=== PATIENT | female | born 1960 | race African-American/Black ===

== ENCOUNTER 2019-11-22 14:52 | Inpatient (IN) | payer MEDICAID, MEDICARE, OTHER ==
[~2019-11-22] VITALS: Ht 170.2 cm; Wt 126.1 kg
[2019-11-22 15:44] LABS: BASO # 0.1 x10^3/uL (0.0-0.2); BASO % 1 % (0-3); EOS % 0 % (0-3); HEMATOCRIT 43.7 % (36.0-47.0); HEMOGLOBIN 14.8 g/dL (12.0-15.5); LYMPH # 2.2 x10^3/uL (1.0-4.8); LYMPH % 32 % (24-48); MEAN CORPUSCULAR HEMOGLOBIN 28 pg (25-35); MEAN CORPUSCULAR HGB CONC 34 g/dL (31-37); MEAN CORPUSCULAR VOLUME 83 fL (79-100); MONO # 0.6 x10^3/uL (0.0-1.1); MONO % 9 % (0-9); NEUT % 58 % (31-73); PLATELET COUNT 386 x10^3/uL (140-400); RED BLOOD COUNT 5.28 x10^6/uL (3.50-5.40); RED CELL DISTRIBUTION WIDTH 14.1 % (11.5-14.5); WHITE BLOOD COUNT 6.9 x10^3/uL (4.0-11.0)
[2019-11-22 15:51] LABS: CALCIUM 9.6 mg/dL (8.5-10.1); CREATININE 1.1 mg/dL (0.6-1.0); GFR 61.9; POTASSIUM 3.8 mmol/L (3.5-5.1)
[2019-11-22 15:57] LABS: ALBUMIN 3.9 g/dL (3.4-5.0); ALBUMIN/GLOBULIN RATIO 0.8 (1.0-1.7); MAGNESIUM 2.4 mg/dL (1.8-2.4); TOTAL BILIRUBIN 0.3 mg/dL (0.2-1.0); TOTAL PROTEIN 8.6 g/dL (6.4-8.2)
[2019-11-22 16:02] LABS: ACETAMIN < 2.0 mcg/mL (10-30); ETHANOL < 10 mg/dL (0-10); SALIC < 2.8 mg/dL (2.8-20.0)
[2019-11-22] MEDS ORDERED: MV-M1TAB29 PO (16:17)
[2019-11-22] MEDS ORDERED: POLY2500 PO (16:17)
[2019-11-22] MEDS ORDERED: LOSA1TAB19 PO (16:17)
[2019-11-22] MEDS ORDERED: DOCU100C28 PO (16:17)
[2019-11-22] MEDS ORDERED: ACET500T68 PO (16:17)
[2019-11-22] MEDS ORDERED: TRAV5DRO OU (16:17)
[2019-11-22] MEDS ORDERED: ASPI-630 PO (16:17)
[2019-11-22] MEDS ORDERED: LORA-254 PO (16:17)
[2019-11-22] MEDS ORDERED: AMLO5TAB10 PO (16:17)
[2019-11-22] MEDS ORDERED: ATOR10TA60 PO (16:17)
[2019-11-22] MEDS ORDERED: LURA40TA PO (16:17)
[2019-11-22] MEDS ORDERED: PANT40TA5 PO (16:17)
[2019-11-22 16:20] LABS: AMPHETAMINE/METHAMPHETAMINE NEG (NEG); BARBITURATES NEG (NEG); BENZODIAZEPINES NEG (NEG); CANNABINOIDS NEG (NEG); COCAINE NEG (NEG); METHADONE NEG (NEG); OPIATES NEG (NEG); PHENCYCLIDINE NEG (NEG)
[2019-11-22 16:22] LABS: COLOR,URINE YELLOW
[2019-11-22 16:23] LABS: GLUCOSE,URINE NEG (NEG); NITRITE,URINE NEG (NEG); UROBILINOGEN,URINE 0.2 mg/dL (0.2 mg/dL)
[2019-11-22 16:26] LABS: BACTERIA,URINE FEW /HPF (0-FEW); BILIRUBIN,URINE NEG (NEG); WBC,URINE 0 /HPF (0-4)
[2019-11-22 16:27] LABS: HYALINE CASTS, URINE MOD /HPF; SQUAMOUS EPITHELIAL CELL,UR MOD /LPF
[2019-11-22 16:28] LABS: CLARITY,URINE TURBID
--- NOTE | 2019-11-22 16:39 | PHYS DOC ---
Past History Past Medical History: Anxiety, GERD, Glaucoma, Hypertension, Schizophrenia Alcohol Use: None General Adult EDM: Chief Complaint: PSYCH EVALUATION HPI: HPI: Patient is a 58-year-old female who was sent here for medical clearance. She h as history of anxiety depression, patient has been out of her psychiatric medicationS off and on, she becAme depressed, hallucinating sometimes, she was very suicidal, thinking about walking in front of A truck so she can . Patient already has an inpatient psychiatric placement at this [facility] but need medical clearance first. Review of Systems: Review of Systems: Constitutional: Denies fever or chills Eyes: Denies change in visual acuity HENT: Denies nasal congestion or sore throat Respiratory: Denies cough or shortness of breath Cardiovascular: Denies chest pain or edema GI: Denies abdominal pain, nausea, vomiting, bloody stools or diarrhea : Denies dysuria Musculoskeletal: Denies back pain or joint pain Integument: Denies rash Neurologic: Denies headache, focal weakness or sensory changes Endocrine: Denies polyuria or polydipsia Lymphatic: Denies swollen glands Psychiatric: POSITIVE FOR depression , anxiety AND SI Heart Score: Risk Factors: Risk Factors: DM, Current or recent (<one month) smoker, HTN, HLP, family history of CAD, obesity. Risk Scores: Score 0 - 3: 2.5% MACE over next 6 weeks - Discharge Home Score 4 - 6: 20.3% MACE over next 6 weeks - Admit for Clinical Observation Score 7 - 10: 72.7% MACE over next 6 weeks - Early Invasive Strategies Allergies: Allergies: Allergies Coded Allergies Type Severity Reaction Last Updated Verified No Known Drug Allergies 11/22/19 No Physical Exam: PE: Constitutional: Well developed, well nourished, no acute distress, non-toxic appearance. [] HENT: Normocephalic, atraumatic, bilateral external ears normal, oropharynx moist, no oral exudates, nose normal. [] Eyes: PERRLA, EOMI, conjunctiva normal, no discharge. [] Neck: Normal range of motion, no tenderness, supple, no stridor. [] Cardiovascular:Heart rate regular rhythm, no murmur [] Lungs & Thorax: Bilateral breath sounds clear to auscultation [] Abdomen: Bowel sounds normal, soft, no tenderness, no masses, no pulsatile masses. [] Skin: Warm, dry, no erythema, no rash. [] Back: No tenderness, no CVA tenderness. [] Extremities: No tenderness, no cyanosis, no clubbing, ROM intact, no edema. [] Neurologic: Alert and oriented X 3, normal motor function, normal sensory function, no focal deficits noted. [] Psychologic: ENDORSED SUICIDAL IDEATION, DEPRESSED Current Patient Data: Labs: Laboratory Tests Test 11/22/19 15:27 11/22/19 15:51 White Blood Count 6.9 x10^3/uL (4.0-11.0) Red Blood Count 5.28 x10^6/uL (3.50-5.40) Hemoglobin 14.8 g/dL (12.0-15.5) Hematocrit 43.7 % (36.0-47.0) Mean Corpuscular Volume 83 fL (79-100) Mean Corpuscular Hemoglobin 28 pg (25-35) Mean Corpuscular Hemoglobin Concent 34 g/dL (31-37) Red Cell Distribution Width 14.1 % (11.5-14.5) Platelet Count 386 x10^3/uL (140-400) Neutrophils (%) (Auto) 58 % (31-73) Lymphocytes (%) (Auto) 32 % (24-48) Monocytes (%) (Auto) 9 % (0-9) Eosinophils (%) (Auto) 0 % (0-3) Basophils (%) (Auto) 1 % (0-3) Neutrophils # (Auto) 4.0 x10^3uL (1.8-7.7) Lymphocytes # (Auto) 2.2 x10^3/uL (1.0-4.8) Monocytes # (Auto) 0.6 x10^3/uL (0.0-1.1) Eosinophils # (Auto) 0.0 x10^3/uL (0.0-0.7) Basophils # (Auto) 0.1 x10^3/uL (0.0-0.2) Sodium Level 139 mmol/L (136-145) Potassium Level 3.8 mmol/L (3.5-5.1) Chloride Level 102 mmol/L (98-107) Carbon Dioxide Level 26 mmol/L (21-32) Anion Gap 11 (6-14) Blood Urea Nitrogen 12 mg/dL (7-20) Creatinine 1.1 mg/dL (0.6-1.0) H Estimated GFR (Cockcroft-Gault) 61.9 BUN/Creatinine Ratio 11 (6-20) Glucose Level 125 mg/dL (70-99) H Calcium Level 9.6 mg/dL (8.5-10.1) Magnesium Level 2.4 mg/dL (1.8-2.4) Total Bilirubin 0.3 mg/dL (0.2-1.0) Aspartate Amino Transferase (AST) 19 U/L (15-37) Alanine Aminotransferase (ALT) 27 U/L (14-59) Alkaline Phosphatase 114 U/L (46-116) Total Protein 8.6 g/dL (6.4-8.2) H Albumin 3.9 g/dL (3.4-5.0) Albumin/Globulin Ratio 0.8 (1.0-1.7) L Salicylates Level < 2.8 mg/dL (2.8-20.0) L Salicylate Last Dose Date Unknown Salicylate Last Dose Time Unknown Acetaminophen Level < 2.0 mcg/mL (10-30) L Acetaminophen Last Dose Date Unknown Acetaminophen Last Dose Time Unknown Ethyl Alcohol Level < 10 mg/dL (0-10) Urine Collection Type Void Urine Color Yellow Urine Clarity Turbid Urine pH 5.5 Urine Specific [place] >=1.030 Urine Protein Trace (NEG-TRACE) Urine Glucose (UA) Neg mg/dL (NEG) Urine Ketones (Stick) Trace mg/dL (NEG) Urine Blood Trace (NEG) Urine Nitrite Neg (NEG) Urine Bilirubin Neg (NEG) Urine Urobilinogen Dipstick 0.2 mg/dL (0.2 mg/dL) Urine Leukocyte Esterase Neg (NEG) Urine RBC 1-2 /HPF (0-2) Urine WBC 0 /HPF (0-4) Urine Squamous Epithelial Cells Mod /LPF Urine Bacteria Few /HPF (0-FEW) Urine Hyaline Casts Mod /HPF Urine Mucus Slight /LPF Urine Opiates Screen Neg (NEG) Urine Methadone Screen Neg (NEG) Urine Barbiturates Neg (NEG) Urine Phencyclidine Screen Neg (NEG) Urine Amphetamine/Methamphetamine Neg (NEG) Urine Benzodiazepines Screen Neg (NEG) Urine Cocaine Screen Neg (NEG) Urine Cannabinoids Screen Neg (NEG) Urine Ethyl Alcohol Neg (NEG) Vital Signs: Vital Signs Date Time Temp Pulse Resp B/P (MAP) Pulse Ox O2 Delivery O2 Flow Rate FiO2 11/22/19 15:00 98.4 88 22 146/105 (119) 100 Room Air EKG: EKG: [] Radiology/Procedures: Radiology/Procedures: [] Course & Med Decision Making: Course & Med Decision Making Pertinent Labs and Imaging studies reviewed. (See chart for details) Patient is medically clear at 1630, She will be admitted to the [facility] psych unit Dragon Disclaimer: Massimo Disclaimer: This electronic medical record was generated, in whole or in part, using a voice recognition dictation system. Departure Departure: Impression: Primary Impression: Suicidal thoughts Disposition: ADMITTED INPATIENT Admitting Physician: Other (dr. QUISPE) Condition: STABLE Referrals: BRIANA DELACRUZ DO (PCP) PIPER DIAZ DO Nov 22, 2019 16:38
[2019-11-22] MEDS ORDERED: MAG HYDROX/AL HYDROX/SIMETH 30 ML ORAL.SUSP PO PRN (17:45)
[2019-11-22] MEDS ORDERED: MAGNESIUM HYDROXIDE 2,400 MG/30 ML ORAL.SUSP. PO PRN (17:45)
[2019-11-22] MEDS ORDERED: ACETAMINOPHEN 500 MG TABLET PO PRN (17:45)
[2019-11-22] MEDS ORDERED: ACETAMINOPHEN 325 MG TABLET PO PRN (17:45)
[2019-11-22] MEDS ORDERED: LORazepam 1 MG TABLET PO PRN (17:45)
[2019-11-22] MEDS ORDERED: METHYL SALICYLATE/MENTHOL TOPICAL OINTMENT 57GM TUBE. TP PRN (17:45)
[2019-11-22 17:50] VITALS: BP 137/86
[2019-11-22] MEDS ORDERED: POLYETHYLENE GLYCOL 3350 17 GM PACKET. PO PRN (18:30)
[2019-11-22] MEDS: LURASIDONE 40 MG TABLET. PO SCH (20:42)
[2019-11-22] MEDS: ATORVASTATIN CALCIUM 10 MG TABLET. PO SCH (20:42)
[2019-11-22] MEDS: DOCUSATE SODIUM 100 MG CAPSULE PO SCH (20:42)
[2019-11-22] MEDS: LATANOPROST 0.005% OPHTH SOLUTION 2.5ML BOTTLE. OU SCH (20:42)
--- NOTE | 2019-11-22 22:09 | PDOC ---
Exam Note: Kannan Note: Please also refer to the separate dictated note~for this date of service dictated separately. Discussed the patient with Nursing staff reviewed the chart.~Reviewed interim history and current functioning. Reviewed vital signs,~Labs/ Radiology~and current medications noted below. Continue current treatment with the changes noted in the dictated addendum note Assessment: Vital Signs/I&O: Vital Signs Date Time Temp Pulse Resp B/P (MAP) Pulse Ox O2 Delivery O2 Flow Rate FiO2 11/22/19 18:35 97.4 11/22/19 17:50 58 22 137/86 (103) 97 Room Air Labs: Laboratory Tests Test 11/22/19 15:27 11/22/19 15:51 White Blood Count 6.9 x10^3/uL (4.0-11.0) Red Blood Count 5.28 x10^6/uL (3.50-5.40) Hemoglobin 14.8 g/dL (12.0-15.5) Hematocrit 43.7 % (36.0-47.0) Mean Corpuscular Volume 83 fL (79-100) Mean Corpuscular Hemoglobin 28 pg (25-35) Mean Corpuscular Hemoglobin Concent 34 g/dL (31-37) Red Cell Distribution Width 14.1 % (11.5-14.5) Platelet Count 386 x10^3/uL (140-400) Neutrophils (%) (Auto) 58 % (31-73) Lymphocytes (%) (Auto) 32 % (24-48) Monocytes (%) (Auto) 9 % (0-9) Eosinophils (%) (Auto) 0 % (0-3) Basophils (%) (Auto) 1 % (0-3) Neutrophils # (Auto) 4.0 x10^3uL (1.8-7.7) Lymphocytes # (Auto) 2.2 x10^3/uL (1.0-4.8) Monocytes # (Auto) 0.6 x10^3/uL (0.0-1.1) Eosinophils # (Auto) 0.0 x10^3/uL (0.0-0.7) Basophils # (Auto) 0.1 x10^3/uL (0.0-0.2) Sodium Level 139 mmol/L (136-145) Potassium Level 3.8 mmol/L (3.5-5.1) Chloride Level 102 mmol/L (98-107) Carbon Dioxide Level 26 mmol/L (21-32) Anion Gap 11 (6-14) Blood Urea Nitrogen 12 mg/dL (7-20) Creatinine 1.1 mg/dL (0.6-1.0) H Estimated GFR (Cockcroft-Gault) 61.9 BUN/Creatinine Ratio 11 (6-20) Glucose Level 125 mg/dL (70-99) H Calcium Level 9.6 mg/dL (8.5-10.1) Magnesium Level 2.4 mg/dL (1.8-2.4) Total Bilirubin 0.3 mg/dL (0.2-1.0) Aspartate Amino Transferase (AST) 19 U/L (15-37) Alanine Aminotransferase (ALT) 27 U/L (14-59) Alkaline Phosphatase 114 U/L (46-116) Total Protein 8.6 g/dL (6.4-8.2) H Albumin 3.9 g/dL (3.4-5.0) Albumin/Globulin Ratio 0.8 (1.0-1.7) L Salicylates Level < 2.8 mg/dL (2.8-20.0) L Salicylate Last Dose Date Unknown Salicylate Last Dose Time Unknown Acetaminophen Level < 2.0 mcg/mL (10-30) L Acetaminophen Last Dose Date Unknown Acetaminophen Last Dose Time Unknown Ethyl Alcohol Level < 10 mg/dL (0-10) Urine Collection Type Void Urine Color Yellow Urine Clarity Turbid Urine pH 5.5 Urine Specific [place] >=1.030 Urine Protein Trace (NEG-TRACE) Urine Glucose (UA) Neg mg/dL (NEG) Urine Ketones (Stick) Trace mg/dL (NEG) Urine Blood Trace (NEG) Urine Nitrite Neg (NEG) Urine Bilirubin Neg (NEG) Urine Urobilinogen Dipstick 0.2 mg/dL (0.2 mg/dL) Urine Leukocyte Esterase Neg (NEG) Urine RBC 1-2 /HPF (0-2) Urine WBC 0 /HPF (0-4) Urine Squamous Epithelial Cells Mod /LPF Urine Bacteria Few /HPF (0-FEW) Urine Hyaline Casts Mod /HPF Urine Mucus Slight /LPF Urine Opiates Screen Neg (NEG) Urine Methadone Screen Neg (NEG) Urine Barbiturates Neg (NEG) Urine Phencyclidine Screen Neg (NEG) Urine Amphetamine/Methamphetamine Neg (NEG) Urine Benzodiazepines Screen Neg (NEG) Urine Cocaine Screen Neg (NEG) Urine Cannabinoids Screen Neg (NEG) Urine Ethyl Alcohol Neg (NEG) Current Medications: Meds: Current Medications Medications (Trade) Dose Ordered Sig/Michael Route PRN Reason Start Time Stop Time Status Last Admin Dose Admin Atorvastatin Calcium (Lipitor) 10 mg QHS PO 11/22/19 21:00 11/22/19 20:42 Docusate Sodium (Colace) 100 mg QHS PO 11/22/19 21:00 11/22/19 20:42 Lurasidone HCl (Latuda) 40 mg QHS PO 11/22/19 21:00 11/22/19 20:42 Latanoprost (Xalatan) 1 drop QHS OU 11/22/19 21:00 11/22/19 20:42 I have reviewed the current psychotropics carefully including drug interactions. Risk benefit ratio favors no change other than as noted in my dictated progress note. PIETER PRINCE MD Nov 22, 2019 22:09
[2019-11-23 06:39] VITALS: BP 120/70
--- NOTE | 2019-11-23 08:48 | EKG ---
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
[2019-11-23] MEDS: MULTIVITAMIN with MINERAL TABLET. PO SCH (09:06)
[2019-11-23] MEDS: amLODIPine BESYLATE 5 MG TABLET PO SCH (09:06)
[2019-11-23] MEDS: ASPIRIN CHEWABLE 81 MG TABLET. PO SCH (09:08)
[2019-11-23] MEDS: LOSARTAN 50 MG TABLET. PO SCH (09:08)
[2019-11-23] MEDS: PANTOPRAZOLE 40 MG TABLET. PO SCH (09:08)
[2019-11-23] MEDS: hydroCHLOROthiazide 12.5 MG CAPSULE PO SCH (09:08)
--- NOTE | 2019-11-23 09:45 | HP ---
ADMIT DATE: 11/22/2019 PSYCHIATRIC ADMISSION HISTORY AND EVALUATION This late entry date of service 11/22/2019 covers elements not covered in my initial note 11/22/2019. SUBJECTIVE: I met with the patient in the evening of 11/22/2019 for this evaluation, previously discussed with Alyssia Mon, research coordinator, and reviewed information from the [facility] who have been involved with the patient outpatient psychiatric treatment for some time. IDENTIFYING DATA: The patient is a 58-year-old -[place]onegas[place] female with a long history of schizoaffective disorder, bipolar type. Reportedly, she had been living in an apartment for the past many years and recently is getting more psychotic, believes people are trying to steal from her, trick her, banging on her doors. She has been noncompliant with her prescribed psychotropic medications with an acute exacerbation of her schizoaffective disorder. She had voiced suicidal ideation with a plan to walk in front of a bus. The patient has failed outpatient psychiatric interventions. The behaviors deemed potentially dangerous to herself, referred for inpatient psychiatric stabilization. CHIEF COMPLAINT: "Yes, I have thought about ending my life, but I will not try to hurt myself here." HISTORY OF PRESENT ILLNESS: Reportedly, the patient has a long history of schizoaffective disorder, bipolar type, with periods of elation, racing thoughts alternating with being depressed, sleep and appetite changes, marked psychosis, paranoia. She has been stabilized on psychotropics in the past, but recently noncompliant with her medications resulting in the acute exacerbation. PAST PSYCHIATRIC HISTORY: As above. MEDICAL HISTORY: Positive for hypertension, GERD, glaucoma, history of pituitary tumor with resection, hyperlipidemia, morbid obesity and sleep apnea. DIET: Regular, cardiac. Takes medications whole, ambulates independently. CODE STATUS: Full code. ALLERGIES: POLLEN AND MILK. UA 11/22/2019 was negative. CURRENT PSYCHOTROPICS: Ativan 1 mg q. 6 hours p.r.n., Latuda 40 mg at bedtime. FAMILY HISTORY: Noncontributory. SOCIAL HISTORY: The patient lives in her own apartment with regular services by the [facility]. No alcohol or drug abuse, physical, sexual or elder abuse history is noted. She is not known to be a perpetrator. REACTION TO HOSPITALIZATION: The patient accepting of it. ASSETS: Support from the [facility] program and her living arrangements are stable, though she may need a higher level of care briefly following hospitalization. REVIEW OF SYSTEMS: No CV, , pulmonary, eye, ENT system symptoms on review. MENTAL STATUS EXAMINATION: The patient was seen individually at length on the evening of 11/22/2019. She is lying in bed in her room. She is reasonably oriented. Speech has some latency, coherent. Has abstraction fair, computation impaired, language function intact, attention span short. She appears paranoid, suspicious, talked at some length about her neighbors stealing from her, trying to disrupt her living, making her miserable. She was quite graphic about the hallucinations. She denied active suicidal or homicidal ideation. Mood is depressed. Affect is mood congruent. Attention span is short. Language function intact. Intellect average. Insight limited. Judgment intact to standard questioning. IMPRESSION: Schizoaffective disorder, bipolar type, mixed versus depressed with psychotic features; anxiety disorder, unspecified; impulse control disorder, unspecified. Rest as above. PLAN: Admit to Geropsychiatry Unit at [facility]. I will see the patient daily individually from a psychiatric standpoint. Medical followup with Dr. Flores/Dr. Valladares. We will obtain past psychiatric records, continue current psychotropics. Observe baseline, then adjust as clinically indicated. The patient will probably need treatment on mood stabilizers, perhaps Depakote and Risperdal or Haldol as an antipsychotic and we will make this decision post baseline assessment and reviewing her past records. Estimated length of stay 10-12 days. DISPOSITION PLANS: Perhaps to a lower level of care if not to her apartment post-discharge with the [facility] services. MAN Arlene PRINCE MD DR: DANDY/leeann JOB#: [id number] / [id number]
--- NOTE | 2019-11-23 12:49 | TX PLAN ---
Interdisciplinary Tx Plan Admission Information Nov 22, 2019 at 16:48 Legal Status (on Admission): Voluntary DPOA/Guardian Name: Olena Duval Contact Other Contact Verified Code Status: Full Code Allergies: Coded Allergies: milk (Verified Allergy, Unknown, 11/22/19) pollen extracts (Verified Allergy, Unknown, 11/22/19) Diagnoses Primary Diagnosis: Schizoaffective D/O, Impulse Control D/O Reasons for Admission: Hallucinations, Suicidal ideation Problem in Patient's Words: She has had months of poor behavior and I think it is from the whole Covoid, stay at home orders. Additional Admission Comments: According to the intake, pt made a SI statement with a plan to walk in front of a bus. Pt has been off her meds at times Problems Active Problems: Hallucinations Isolation for Covoid screen Inactive Problems: Currently denying SI Medication compliance Pt Strengths/Limitations Ability for [place]: Fair Cognitive Functioning/Ability: Fair Communication Skills/Ability: Fair Financial Resources: Fair Insight/Judgement: Poor Intellectual Ability: Fair Physical Health: Poor Social Skills: Fair Stability in Family: Good Stability in School/Work: Fair Verbal Skills: Fair Discharge Criteria Discharge Criteria: Able meet basic life need, Adequate arrangements @DC, Improved behavior, Improved mood/thought Preliminary Discharge Plan Preliminary DC Plan: Current Living Arrange. Special Precautions Fall Risk: Low Initial D/C Plan Pt will plan to discharge back home with [facility] services Identified Discharge Needs: continued [facility] services Mental Health Needs Currently Utilized Resources Currently Utilized Resources/P: [facility] services Identified Problems/Hx/Goals Objectives/Short-Term Goals Short Term Goals: Dec. Outbursts, Improved Social Skills, Medication Stabilization, Promote Coping Skill, Other Short Term Goals in Patient's: N/A Interventions/Frequency Staff Interventions/Frequency&: Psychiatrist to assess pt at least 3x per week. Social Work to assess pt at least 2x per week.\ Nursing to assess medications, behaviors and complete 15 minute checks daily. Encourage group participation OR 1:1 engagement based off activity dept assessment and goals. 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 Education: Pt graduated hs (highest level completed was 12th grade) Community Follow-up Continued [facility] services Community Provider/Family Inpu: After her medications get adjusted and we can get her more active, I think she will be just fine. 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
--- NOTE | 2019-11-23 13:24 | CONS ---
DATE OF CONSULTATION: 11/23/2019 ATTENDING PHYSICIAN: Dr. Carvalho. HISTORY OF PRESENT ILLNESS: We are asked to see this patient for medical evaluation. The patient is a 58-year-old -[place] female who has a longstanding history of schizoaffective disorder. She also has learning disability and she was referred here by her mental health provider. She is very disoriented. She has developmental delay. She has no insight. The history is obtained from the chart. She has a longstanding history of schizoaffective disorder, hypertension, gastroesophageal reflux disease, hyperlipidemia, glaucoma, and sleep apnea along with obesity. ALLERGIES: SHE HAS ALLERGIES TO MILK AND POLLEN EXTRACT. CURRENT MEDICINES: Reviewed from the chart. She takes Tylenol, amlodipine, aspirin, Lipitor, docusate, lorazepam, losartan, hydrochlorothiazide, Latuda, multivitamin, pantoprazole, MiraLax and Travatan eye drops. SOCIAL HISTORY: She is a nonsmoker, nondrinker. FAMILY HISTORY: Unobtainable. REVIEW OF SYSTEMS: Unobtainable. PHYSICAL EXAMINATION: GENERAL: When I saw her, this is a pleasant, but confused female. INITIAL VITAL SIGNS: Here today showed a blood pressure of 137/86, pulse is 53 and regular, temperature 98.0 degrees Fahrenheit, oxygen saturation 95% on room air. HEENT: Head is without trauma. The pupils are reactive. Sclerae nonicteric. Oropharynx clear. NECK: Supple, no bruits identified. LUNGS: Clear with shallow respirations. CARDIOVASCULAR: Showed distant heart tones. No obvious gallops. Peripheral pulses are palpable and full. ABDOMEN: Obese, protuberant. No organomegaly. Bowel sounds are hypoactive. EXTREMITIES: Showed 2+ nonpitting edema of the lower extremities. NEUROLOGIC: The patient is very agitated, confused and has no insight as to what is going on. LABORATORY DATA: The hemoglobin is maintained at 14.8 g/dL with white count of 6900. Chemistry panel showed normal electrolytes, creatinine is 1.1 mg/dL, nonfasting blood sugar 125 mg/dL. Transaminases improved and the liver panel is all within normal range. ASSESSMENT: 1. A 58-year-old female with altered mentation with underlying schizoaffective disorder. 2. Developmental delay. 3. Hypertension. 4. Morbid obesity. 5. Type 2 diabetes. 6. Essential hypertension. RECOMMENDATIONS: 1. I have reviewed her medications and I agree with current regimen. 2. She is medically stable at this time. 3. We should gladly follow along during her inpatient stay. Thank you again for asking me to see this patient for medical consultation. ANGUS BALDWIN MD DR: RETA/leeann JOB#: [id number] / [id number] SAJI Bhatti MD
[2019-11-23 16:00] VITALS: BP 121/77
[2019-11-23 17:05] LABS: THYROID STIM HORMONE (TSH) 2.808 uIU/mL (0.358-3.740)
[2019-11-23 18:07] LABS: THYROXINE 8.5 ug/dL (4.5-12.0)
[2019-11-23] MEDS: DOCUSATE SODIUM 100 MG CAPSULE PO SCH (20:04)
[2019-11-23] MEDS: ATORVASTATIN CALCIUM 10 MG TABLET. PO SCH (20:04)
[2019-11-23] MEDS: LATANOPROST 0.005% OPHTH SOLUTION 2.5ML BOTTLE. OU SCH (20:04)
[2019-11-23] MEDS: LURASIDONE 40 MG TABLET. PO SCH (20:04)
--- NOTE | 2019-11-23 21:46 | PDOC ---
Exam Note: Kannan Note: Please also refer to the separate dictated note~for this date of service dictated separately.~Patient seen individually. Discussed the patient with Nursing staff reviewed the chart.~Reviewed interim history and current functioning. Reviewed vital signs,~Labs/ Radiology~and current medications noted below. Continue current treatment with the changes noted in the dictated addendum note Assessment: Vital Signs/I&O: Vital Signs Date Time Temp Pulse Resp B/P (MAP) Pulse Ox O2 Delivery O2 Flow Rate FiO2 11/23/19 18:20 98.2 11/23/19 16:00 54 16 121/77 (92) 96 11/22/19 17:50 Room Air I & O 11/22/19 11/22/19 11/23/19 15:00 23:00 07:00 Intake Total 660 ml Balance 660 ml Current Medications: Meds: Current Medications Medications (Trade) Dose Ordered Sig/Michael Route PRN Reason Start Time Stop Time Status Last Admin Dose Admin Amlodipine Besylate (Norvasc) 5 mg DAILY PO 11/23/19 09:00 11/23/19 09:06 Aspirin (Aspirin Chewable) 81 mg DAILY PO 11/23/19 09:00 11/23/19 09:08 Pantoprazole Sodium (Protonix) 40 mg DAILY PO 11/23/19 09:00 11/23/19 09:08 Losartan Potassium (Cozaar) 50 mg DAILY PO 11/23/19 09:00 11/23/19 09:08 Multivitamins/ Calcium (Thera-M Plus) 1 tab DAILY PO 11/23/19 09:00 11/23/19 09:06 Hydrochlorothiazide (Microzide) 12.5 mg DAILY PO 11/23/19 09:00 11/23/19 09:08 I have reviewed the current psychotropics carefully including drug interactions. Risk benefit ratio favors no change other than as noted in my dictated progress note. Diagnosis: Problems: (1) Schizoaffective disorder, bipolar type (2) Bipolar disorder, curr episode depressed, severe, w/psychotic features (3) Impulse control disorder, unspecified (4) Anxiety disorder, unspecified PIETER PRINCE MD Nov 23, 2019 21:46
[2019-11-24 02:06] LABS: HEMOGLOBIN A1C 6.5 % (4.8-5.6)
[2019-11-24 06:04] VITALS: BP 124/80
[2019-11-24] MEDS: hydroCHLOROthiazide 12.5 MG CAPSULE PO SCH (08:59)
[2019-11-24] MEDS: MULTIVITAMIN with MINERAL TABLET. PO SCH (09:00)
[2019-11-24] MEDS: PANTOPRAZOLE 40 MG TABLET. PO SCH (09:00)
[2019-11-24] MEDS: ASPIRIN CHEWABLE 81 MG TABLET. PO SCH (09:00)
[2019-11-24] MEDS: LOSARTAN 50 MG TABLET. PO SCH (09:00)
[2019-11-24] MEDS: amLODIPine BESYLATE 5 MG TABLET PO SCH (09:00)
[2019-11-24 10:00] LABS: BASO # 0.1 x10^3/uL (0.0-0.2); BASO % 1 % (0-3); EOS % 0 % (0-3); HEMATOCRIT 43.6 % (36.0-47.0); HEMOGLOBIN 14.6 g/dL (12.0-15.5); LYMPH # 2.6 x10^3/uL (1.0-4.8); LYMPH % 37 % (24-48); MEAN CORPUSCULAR HEMOGLOBIN 28 pg (25-35); MEAN CORPUSCULAR HGB CONC 34 g/dL (31-37); MEAN CORPUSCULAR VOLUME 83 fL (79-100); MONO # 0.6 x10^3/uL (0.0-1.1); MONO % 9 % (0-9); NEUT # 3.7 x10^3uL (1.8-7.7); NEUT % 53 % (31-73); PLATELET COUNT 390 x10^3/uL (140-400); RED BLOOD COUNT 5.26 x10^6/uL (3.50-5.40); RED CELL DISTRIBUTION WIDTH 14.5 % (11.5-14.5); WHITE BLOOD COUNT 6.9 x10^3/uL (4.0-11.0)
[2019-11-24 10:25] LABS: ALBUMIN 3.8 g/dL (3.4-5.0); ALBUMIN/GLOBULIN RATIO 0.8 (1.0-1.7); CALCIUM 9.5 mg/dL (8.5-10.1); GFR 69.1; POTASSIUM 4.2 mmol/L (3.5-5.1); TOTAL BILIRUBIN 0.3 mg/dL (0.2-1.0); TOTAL PROTEIN 8.5 g/dL (6.4-8.2)
[2019-11-24 16:26] VITALS: BP 132/85
[2019-11-24] MEDS: LURASIDONE 40 MG TABLET. PO SCH (19:54)
[2019-11-24] MEDS: ATORVASTATIN CALCIUM 10 MG TABLET. PO SCH (19:54)
[2019-11-24] MEDS: DOCUSATE SODIUM 100 MG CAPSULE PO SCH (19:54)
[2019-11-24] MEDS: LATANOPROST 0.005% OPHTH SOLUTION 2.5ML BOTTLE. OU SCH (19:54)
[2019-11-24] MEDS: DIVALPROEX ER 500 MG TAB.ER.24H PO SCH (19:54)
--- NOTE | 2019-11-24 22:18 | PDOC ---
Exam Note: Kannan Note: This note is a late entry for 11/23/2019 covers elements not covered in my initial note. Subjective: The patient was seen face to face in the evening of 11/23/2019. Nursing report was with Anuja CLANCY. She slept 5 hours previous night. She continues to be quite labile in her mood, very irritable and dismissive as I met with her and the nursing staff. We have requested past psychiatric records from Dr. Vick Wallace at [facility]. She has been napping off and on during the day. She was in her room as I met with her in the evening. Review of Systems: No CV, GI/, Pulmonary, Eye system symptoms on review. Mental Status Exam: Reasonably oriented. Speech coherent, rapid at times, somewhat abrasive in her presentation. Abstraction fair. Computation impaired. Language function intact. Mood is depressed. No suicidal ideation. She remains paranoid, psychotic, very suspicious questioning me at length about various aspects of her admission wanting to be discharged. Denying any problems that prompted this referral all of which I addressed her at length. Laboratory Data: Reviewed. Impression: Schizoaffective disorder, bipolar type, mixed with psychotic features. Impulse control disorder. Psychotic disorder unspecified. Anxiety disorder unspecified. Plan: Continue psychotropics from initial note. She is currently on Latuda 40 mg h.s., Ativan p.r.n. We will add Depakote as a mood stabilizer once we get the records to make sure she has had no adverse effects from it in the past. May consider changing Latuda to Risperdal given the extent of her paranoia. Assessment: Vital Signs/I&O: Vital Signs Date Time Temp Pulse Resp B/P (MAP) Pulse Ox O2 Delivery O2 Flow Rate FiO2 11/24/19 20:29 98.8 95 11/24/19 16:26 78 20 132/85 (101) 11/22/19 17:50 Room Air I & O 11/23/19 11/23/19 11/24/19 15:00 23:00 07:00 Intake Total 120 ml 660 ml Balance 120 ml 660 ml Labs: Laboratory Tests Test 11/24/19 09:48 White Blood Count 6.9 x10^3/uL (4.0-11.0) Red Blood Count 5.26 x10^6/uL (3.50-5.40) Hemoglobin 14.6 g/dL (12.0-15.5) Hematocrit 43.6 % (36.0-47.0) Mean Corpuscular Volume 83 fL (79-100) Mean Corpuscular Hemoglobin 28 pg (25-35) Mean Corpuscular Hemoglobin Concent 34 g/dL (31-37) Red Cell Distribution Width 14.5 % (11.5-14.5) Platelet Count 390 x10^3/uL (140-400) Neutrophils (%) (Auto) 53 % (31-73) Lymphocytes (%) (Auto) 37 % (24-48) Monocytes (%) (Auto) 9 % (0-9) Eosinophils (%) (Auto) 0 % (0-3) Basophils (%) (Auto) 1 % (0-3) Neutrophils # (Auto) 3.7 x10^3uL (1.8-7.7) Lymphocytes # (Auto) 2.6 x10^3/uL (1.0-4.8) Monocytes # (Auto) 0.6 x10^3/uL (0.0-1.1) Eosinophils # (Auto) 0.0 x10^3/uL (0.0-0.7) Basophils # (Auto) 0.1 x10^3/uL (0.0-0.2) Sodium Level 139 mmol/L (136-145) Potassium Level 4.2 mmol/L (3.5-5.1) Chloride Level 103 mmol/L (98-107) Carbon Dioxide Level 28 mmol/L (21-32) Anion Gap 8 (6-14) Blood Urea Nitrogen 10 mg/dL (7-20) Creatinine 1.0 mg/dL (0.6-1.0) Estimated GFR (Cockcroft-Gault) 69.1 BUN/Creatinine Ratio 10 (6-20) Glucose Level 126 mg/dL (70-99) H Calcium Level 9.5 mg/dL (8.5-10.1) Total Bilirubin 0.3 mg/dL (0.2-1.0) Aspartate Amino Transferase (AST) 17 U/L (15-37) Alanine Aminotransferase (ALT) 25 U/L (14-59) Alkaline Phosphatase 108 U/L (46-116) Total Protein 8.5 g/dL (6.4-8.2) H Albumin 3.8 g/dL (3.4-5.0) Albumin/Globulin Ratio 0.8 (1.0-1.7) L Current Medications: Meds: Current Medications Medications (Trade) Dose Ordered Sig/Michael Route PRN Reason Start Time Stop Time Status Last Admin Dose Admin Divalproex Sodium (Depakote Er) 500 mg QHS PO 11/24/19 21:00 11/24/19 19:54 Olanzapine (ZyPREXA ZYDIS) 5 mg PRN Q2HRS PRN PO psychosis/agitation 11/24/19 17:15 11/24/19 19:54 I have reviewed the current psychotropics carefully including drug interactions. Risk benefit ratio favors no change other than as noted in my dictated progress note. Diagnosis: Problems: (1) Schizoaffective disorder, bipolar type (2) Impulse control disorder, unspecified (3) Anxiety disorder, unspecified (4) Bipolar disorder, curr episode depressed, severe, w/psychotic features PIETER PRINCE MD Nov 24, 2019 22:18
--- NOTE | 2019-11-24 22:18 | PDOC ---
Exam Note: Kannan Note: Please also refer to the separate dictated note~for this date of service dictated separately.~Patient seen individually. Discussed the patient with Nursing staff reviewed the chart.~Reviewed interim history and current functioning. Reviewed vital signs,~Labs/ Radiology~and current medications noted below. Continue current treatment with the changes noted in the dictated addendum note Assessment: Vital Signs/I&O: Vital Signs Date Time Temp Pulse Resp B/P (MAP) Pulse Ox O2 Delivery O2 Flow Rate FiO2 11/24/19 20:29 98.8 95 11/24/19 16:26 78 20 132/85 (101) 11/22/19 17:50 Room Air I & O 11/23/19 11/23/19 11/24/19 15:00 23:00 07:00 Intake Total 120 ml 660 ml Balance 120 ml 660 ml Labs: Laboratory Tests Test 11/24/19 09:48 White Blood Count 6.9 x10^3/uL (4.0-11.0) Red Blood Count 5.26 x10^6/uL (3.50-5.40) Hemoglobin 14.6 g/dL (12.0-15.5) Hematocrit 43.6 % (36.0-47.0) Mean Corpuscular Volume 83 fL (79-100) Mean Corpuscular Hemoglobin 28 pg (25-35) Mean Corpuscular Hemoglobin Concent 34 g/dL (31-37) Red Cell Distribution Width 14.5 % (11.5-14.5) Platelet Count 390 x10^3/uL (140-400) Neutrophils (%) (Auto) 53 % (31-73) Lymphocytes (%) (Auto) 37 % (24-48) Monocytes (%) (Auto) 9 % (0-9) Eosinophils (%) (Auto) 0 % (0-3) Basophils (%) (Auto) 1 % (0-3) Neutrophils # (Auto) 3.7 x10^3uL (1.8-7.7) Lymphocytes # (Auto) 2.6 x10^3/uL (1.0-4.8) Monocytes # (Auto) 0.6 x10^3/uL (0.0-1.1) Eosinophils # (Auto) 0.0 x10^3/uL (0.0-0.7) Basophils # (Auto) 0.1 x10^3/uL (0.0-0.2) Sodium Level 139 mmol/L (136-145) Potassium Level 4.2 mmol/L (3.5-5.1) Chloride Level 103 mmol/L (98-107) Carbon Dioxide Level 28 mmol/L (21-32) Anion Gap 8 (6-14) Blood Urea Nitrogen 10 mg/dL (7-20) Creatinine 1.0 mg/dL (0.6-1.0) Estimated GFR (Cockcroft-Gault) 69.1 BUN/Creatinine Ratio 10 (6-20) Glucose Level 126 mg/dL (70-99) H Calcium Level 9.5 mg/dL (8.5-10.1) Total Bilirubin 0.3 mg/dL (0.2-1.0) Aspartate Amino Transferase (AST) 17 U/L (15-37) Alanine Aminotransferase (ALT) 25 U/L (14-59) Alkaline Phosphatase 108 U/L (46-116) Total Protein 8.5 g/dL (6.4-8.2) H Albumin 3.8 g/dL (3.4-5.0) Albumin/Globulin Ratio 0.8 (1.0-1.7) L Current Medications: Meds: Current Medications Medications (Trade) Dose Ordered Sig/Michael Route PRN Reason Start Time Stop Time Status Last Admin Dose Admin Divalproex Sodium (Depakote Er) 500 mg QHS PO 11/24/19 21:00 11/24/19 19:54 Olanzapine (ZyPREXA ZYDIS) 5 mg PRN Q2HRS PRN PO psychosis/agitation 11/24/19 17:15 11/24/19 19:54 I have reviewed the current psychotropics carefully including drug interactions. Risk benefit ratio favors no change other than as noted in my dictated progress note. Diagnosis: Problems: (1) Schizoaffective disorder, bipolar type (2) Impulse control disorder, unspecified (3) Anxiety disorder, unspecified (4) Bipolar disorder, curr episode depressed, severe, w/psychotic features PIETER PRINCE MD Nov 24, 2019 22:18
[2019-11-25 05:39] VITALS: BP 99/72
[2019-11-25] MEDS: MULTIVITAMIN with MINERAL TABLET. PO SCH (08:47)
[2019-11-25] MEDS: ASPIRIN CHEWABLE 81 MG TABLET. PO SCH (08:47)
[2019-11-25] MEDS: PANTOPRAZOLE 40 MG TABLET. PO SCH (08:47)
[2019-11-25] MEDS: LOSARTAN 50 MG TABLET. PO SCH (09:00)
[2019-11-25] MEDS: hydroCHLOROthiazide 12.5 MG CAPSULE PO SCH (09:00)
[2019-11-25] MEDS: amLODIPine BESYLATE 5 MG TABLET PO SCH (09:00)
--- NOTE | 2019-11-25 13:39 | RAD ---
CT head without contrast PQRS statement: CT scans at this facility use dose reduction including either automated exposure control, iterative reconstructions, and /or weight based radiation dosing via mA and kV modification when appropriate to reduce radiation dose to as low as reasonably achievable. HISTORY: Mental status change. FINDINGS: No intracranial hemorrhage, mass, hydrocephalus, extra-axial fluid collections or infarction. No acute ischemic changes evident. 1 cm soft tissue nodule and a subcentimeter smaller nodule within the left parotid gland anterior and below the external auditory canal. Orbits, mastoids unremarkable. Prior right temporal craniotomy. IMPRESSION: 1. No acute intracranial CT abnormality. Prior right temporal craniotomy. 2. 2 solid nodules of the left parotid gland, are indeterminate. This could be enlarged lymph nodes versus primary salivary gland tumor. Electronically signed by: Ky Glass MD (11/25/2019 1:37 PM) [id number]
[2019-11-25 16:00] VITALS: BP 118/69
[2019-11-25] MEDS ORDERED: BISACODYL 10 MG SUPP.RECT PR PRN (19:15)
[2019-11-25] MEDS: DIVALPROEX ER 500 MG TAB.ER.24H PO SCH (21:00)
[2019-11-25] MEDS: ATORVASTATIN CALCIUM 10 MG TABLET. PO SCH (21:00)
[2019-11-25] MEDS: LURASIDONE 40 MG TABLET. PO SCH (21:00)
[2019-11-25] MEDS: LATANOPROST 0.005% OPHTH SOLUTION 2.5ML BOTTLE. OU SCH (21:00)
[2019-11-25] MEDS: DOCUSATE SODIUM 100 MG CAPSULE PO SCH (21:00)
--- NOTE | 2019-11-25 22:09 | PDOC ---
Exam Note: Kannan Note: Please also refer to the separate dictated note~for this date of service dictated separately.~Patient seen individually. Discussed the patient with Nursing staff reviewed the chart.~Reviewed interim history and current functioning. Reviewed vital signs,~Labs/ Radiology~and current medications noted below. Continue current treatment with the changes noted in the dictated addendum note Assessment: Vital Signs/I&O: Vital Signs Date Time Temp Pulse Resp B/P (MAP) Pulse Ox O2 Delivery O2 Flow Rate FiO2 11/25/19 18:03 97.9 11/25/19 16:00 80 118/69 (85) 97 11/25/19 05:39 20 Room Air I & O 11/24/19 11/24/19 11/25/19 15:00 23:00 07:00 Intake Total 360 ml 600 ml Balance 360 ml 600 ml Current Medications: I have reviewed the current psychotropics carefully including drug interactions. Risk benefit ratio favors no change other than as noted in my dictated progress note. Diagnosis: Problems: (1) Schizoaffective disorder, bipolar type (2) Impulse control disorder, unspecified (3) Anxiety disorder, unspecified (4) Bipolar disorder, curr episode depressed, severe, w/psychotic features PIETER PRINCE MD Nov 25, 2019 22:09
[2019-11-26 06:42] VITALS: BP 124/81
--- NOTE | 2019-11-26 07:44 | PDOC ---
Exam Note: Kannan Note: This note is a late entry for 11/24/2019 covers elements not covered in my initial note. Subjective: The patient was seen face to face in the evening of 11/24/2019. Nursing report was with Virginia CLANCY. She slept 5 hours previous night. She was quite social, laughing with pseudobulbar affect in the morning. Her hysterical laughter was resistive to medication, later was irritable and angry. We will start Zyprexa 5 mg q.2h. p.r.n. psychosis and agitation max 20 in 24 hours. Review of Systems: No CV, , pulmonary, eye, ENT system symptoms on review. Mental Status Exam: Reasonably oriented. She is quite irritable, paranoid, labile in her mood as I met with her. Abstraction fair. Computation impaired. Attention span short. Language function intact. Mood and affect labile. Laboratory Data: Reviewed. Impression: Schizoaffective disorder, bipolar type, mixed with psychotic features. Impulse control disorder. Psychotic disorder unspecified. Anxiety disorder unspecified. Plan: Continue psychotropics from initial note. Start Depakote ER 500 mg h.s. Check CBC, CMP, valproic acid level in 3 days. May change Latuda to Risperdal later if psychotic persists. Assessment: Vital Signs/I&O: Vital Signs Date Time Temp Pulse Resp B/P (MAP) Pulse Ox O2 Delivery O2 Flow Rate FiO2 11/26/19 06:42 97.3 68 16 124/81 (95) 96 11/25/19 05:39 Room Air I & O 11/25/19 11/25/19 11/26/19 15:00 23:00 07:00 Intake Total 760 ml 600 ml Balance 760 ml 600 ml Current Medications: I have reviewed the current psychotropics carefully including drug interactions. Risk benefit ratio favors no change other than as noted in my dictated progress note. Diagnosis: Problems: (1) Schizoaffective disorder, bipolar type (2) Impulse control disorder, unspecified (3) Anxiety disorder, unspecified (4) Bipolar disorder, curr episode depressed, severe, w/psychotic features PIETER PRINCE MD Nov 26, 2019 07:44
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
[2019-11-26] MEDS: LOSARTAN 50 MG TABLET. PO SCH (08:16)
[2019-11-26] MEDS: amLODIPine BESYLATE 5 MG TABLET PO SCH (08:16)
[2019-11-26] MEDS: PANTOPRAZOLE 40 MG TABLET. PO SCH (08:17)
[2019-11-26] MEDS: MULTIVITAMIN with MINERAL TABLET. PO SCH (08:17)
[2019-11-26] MEDS: ASPIRIN CHEWABLE 81 MG TABLET. PO SCH (08:17)
[2019-11-26] MEDS: hydroCHLOROthiazide 12.5 MG CAPSULE PO SCH (08:17)
[2019-11-26 16:29] VITALS: BP 151/78
[2019-11-26] MEDS: DOCUSATE SODIUM 100 MG CAPSULE PO SCH (22:05)
[2019-11-26] MEDS: DIVALPROEX ER 500 MG TAB.ER.24H PO SCH (22:05)
[2019-11-26] MEDS: ATORVASTATIN CALCIUM 10 MG TABLET. PO SCH (22:05)
[2019-11-26] MEDS: PRAZOSIN 1 MG CAPSULE. PO SCH (22:06)
[2019-11-26] MEDS: LATANOPROST 0.005% OPHTH SOLUTION 2.5ML BOTTLE. OU SCH (22:06)
[2019-11-26] MEDS: LURASIDONE 40 MG TABLET. PO SCH (22:09)
--- NOTE | 2019-11-26 22:16 | PDOC ---
Exam Note: Kannan Note: Please also refer to the separate dictated note~for this date of service dictated separately.~Patient seen individually. Discussed the patient with Nursing staff reviewed the chart.~Reviewed interim history and current functioning. Reviewed vital signs,~Labs/ Radiology~and current medications noted below. Continue current treatment with the changes noted in the dictated addendum note Assessment: Vital Signs/I&O: Vital Signs Date Time Temp Pulse Resp B/P (MAP) Pulse Ox O2 Delivery O2 Flow Rate FiO2 11/26/19 22:06 73 151/78 11/26/19 18:18 98.2 11/26/19 16:29 18 97 11/25/19 05:39 Room Air I & O 11/25/19 11/25/19 11/26/19 15:00 23:00 07:00 Intake Total 760 ml 600 ml Balance 760 ml 600 ml Current Medications: Meds: Current Medications Medications (Trade) Dose Ordered Sig/Michael Route PRN Reason Start Time Stop Time Status Last Admin Dose Admin Prazosin HCl (Minipress) 1 mg QHS PO 11/26/19 21:00 11/28/19 08:00 11/26/19 22:06 I have reviewed the current psychotropics carefully including drug interactions. Risk benefit ratio favors no change other than as noted in my dictated progress note. Diagnosis: Problems: (1) Schizoaffective disorder, bipolar type (2) Impulse control disorder, unspecified (3) Anxiety disorder, unspecified (4) Bipolar disorder, curr episode depressed, severe, w/psychotic features PIETER PRINCE MD Nov 26, 2019 22:15
[2019-11-27 05:58] VITALS: BP 120/74
[2019-11-27] MEDS: ASPIRIN CHEWABLE 81 MG TABLET. PO SCH (07:57)
[2019-11-27] MEDS: MULTIVITAMIN with MINERAL TABLET. PO SCH (07:57)
[2019-11-27] MEDS: hydroCHLOROthiazide 12.5 MG CAPSULE PO SCH (07:58)
[2019-11-27] MEDS: PANTOPRAZOLE 40 MG TABLET. PO SCH (07:58)
[2019-11-27] MEDS: LOSARTAN 50 MG TABLET. PO SCH (07:58)
[2019-11-27] MEDS: amLODIPine BESYLATE 5 MG TABLET PO SCH (07:58)
[2019-11-27 09:09] LABS: BASO % 0 % (0-3); EOS % 0 % (0-3); HEMATOCRIT 43.9 % (36.0-47.0); HEMOGLOBIN 14.6 g/dL (12.0-15.5); LYMPH # 1.9 x10^3/uL (1.0-4.8); LYMPH % 33 % (24-48); MEAN CORPUSCULAR HEMOGLOBIN 28 pg (25-35); MEAN CORPUSCULAR HGB CONC 33 g/dL (31-37); MEAN CORPUSCULAR VOLUME 84 fL (79-100); MONO # 0.5 x10^3/uL (0.0-1.1); MONO % 8 % (0-9); NEUT # 3.4 x10^3uL (1.8-7.7); NEUT % 59 % (31-73); PLATELET COUNT 351 x10^3/uL (140-400); RED BLOOD COUNT 5.23 x10^6/uL (3.50-5.40); RED CELL DISTRIBUTION WIDTH 14.2 % (11.5-14.5); WHITE BLOOD COUNT 5.8 x10^3/uL (4.0-11.0)
[2019-11-27 09:20] LABS: ALBUMIN 3.6 g/dL (3.4-5.0); ALBUMIN/GLOBULIN RATIO 0.8 (1.0-1.7); ALK PHOS 101 U/L (46-116); ALT (SGPT) 22 U/L (14-59); ANION GAP 11 (6-14); AST (SGOT) 16 U/L (15-37); BLOOD UREA NITROGEN 8 mg/dL (7-20); BUN/CREATININE RATIO 9 (6-20); CALCIUM 9.1 mg/dL (8.5-10.1); CARBON DIOXIDE 25 mmol/L (21-32); CHLORIDE 102 mmol/L (98-107); CREATININE 0.9 mg/dL (0.6-1.0); GFR 78.1; GLUCOSE 151 mg/dL (70-99); POTASSIUM 3.8 mmol/L (3.5-5.1); SODIUM 138 mmol/L (136-145); TOTAL BILIRUBIN 0.3 mg/dL (0.2-1.0); TOTAL PROTEIN 8.1 g/dL (6.4-8.2)
[2019-11-27 09:21] LABS: VAL ACID 22 mcg/mL (50-100)
[2019-11-27 15:59] VITALS: BP 127/79
[2019-11-27] MEDS: ATORVASTATIN CALCIUM 10 MG TABLET. PO SCH (19:55)
[2019-11-27] MEDS: DOCUSATE SODIUM 100 MG CAPSULE PO SCH (19:55)
[2019-11-27] MEDS: LATANOPROST 0.005% OPHTH SOLUTION 2.5ML BOTTLE. OU SCH (19:55)
[2019-11-27] MEDS: LURASIDONE 40 MG TABLET. PO SCH (19:56)
[2019-11-27] MEDS: PRAZOSIN 1 MG CAPSULE. PO SCH (19:56)
[2019-11-27] MEDS: DIVALPROEX ER 500 MG TAB.ER.24H PO SCH (19:57)
--- NOTE | 2019-11-27 21:57 | PDOC ---
Exam Note: Kannan Note: Please also refer to the separate dictated note~for this date of service dictated separately.~Patient seen individually. Discussed the patient with Nursing staff reviewed the chart.~Reviewed interim history and current functioning. Reviewed vital signs,~Labs/ Radiology~and current medications noted below. Continue current treatment with the changes noted in the dictated addendum note Assessment: Vital Signs/I&O: Vital Signs Date Time Temp Pulse Resp B/P (MAP) Pulse Ox O2 Delivery O2 Flow Rate FiO2 11/27/19 19:56 65 127/79 11/27/19 15:59 97.6 17 97 Room Air I & O 11/26/19 11/26/19 11/27/19 15:00 23:00 07:00 Intake Total 1200 ml 480 ml Balance 1200 ml 480 ml Labs: Laboratory Tests Test 11/27/19 08:38 White Blood Count 5.8 x10^3/uL (4.0-11.0) Red Blood Count 5.23 x10^6/uL (3.50-5.40) Hemoglobin 14.6 g/dL (12.0-15.5) Hematocrit 43.9 % (36.0-47.0) Mean Corpuscular Volume 84 fL (79-100) Mean Corpuscular Hemoglobin 28 pg (25-35) Mean Corpuscular Hemoglobin Concent 33 g/dL (31-37) Red Cell Distribution Width 14.2 % (11.5-14.5) Platelet Count 351 x10^3/uL (140-400) Neutrophils (%) (Auto) 59 % (31-73) Lymphocytes (%) (Auto) 33 % (24-48) Monocytes (%) (Auto) 8 % (0-9) Eosinophils (%) (Auto) 0 % (0-3) Basophils (%) (Auto) 0 % (0-3) Neutrophils # (Auto) 3.4 x10^3uL (1.8-7.7) Lymphocytes # (Auto) 1.9 x10^3/uL (1.0-4.8) Monocytes # (Auto) 0.5 x10^3/uL (0.0-1.1) Eosinophils # (Auto) 0.0 x10^3/uL (0.0-0.7) Basophils # (Auto) 0.0 x10^3/uL (0.0-0.2) Sodium Level 138 mmol/L (136-145) Potassium Level 3.8 mmol/L (3.5-5.1) Chloride Level 102 mmol/L (98-107) Carbon Dioxide Level 25 mmol/L (21-32) Anion Gap 11 (6-14) Blood Urea Nitrogen 8 mg/dL (7-20) Creatinine 0.9 mg/dL (0.6-1.0) Estimated GFR (Cockcroft-Gault) 78.1 BUN/Creatinine Ratio 9 (6-20) Glucose Level 151 mg/dL (70-99) H Calcium Level 9.1 mg/dL (8.5-10.1) Total Bilirubin 0.3 mg/dL (0.2-1.0) Aspartate Amino Transferase (AST) 16 U/L (15-37) Alanine Aminotransferase (ALT) 22 U/L (14-59) Alkaline Phosphatase 101 U/L (46-116) Total Protein 8.1 g/dL (6.4-8.2) Albumin 3.6 g/dL (3.4-5.0) Albumin/Globulin Ratio 0.8 (1.0-1.7) L Valproic Acid Level 22 mcg/mL (50-100) L Valproic Acid Last Dose Date 11/26/19 Valproic Acid Last Dose Time 2100 Current Medications: Meds: Current Medications Medications (Trade) Dose Ordered Sig/Michael Route PRN Reason Start Time Stop Time Status Last Admin Dose Admin Divalproex Sodium (Depakote Er) 1,000 mg QHS PO 11/27/19 21:00 11/27/19 19:57 I have reviewed the current psychotropics carefully including drug interactions. Risk benefit ratio favors no change other than as noted in my dictated progress note. Diagnosis: Problems: (1) Schizoaffective disorder, bipolar type (2) Impulse control disorder, unspecified (3) Anxiety disorder, unspecified (4) Bipolar disorder, curr episode depressed, severe, w/psychotic features PIETER PRINCE MD Nov 27, 2019 21:57
[2019-11-28 06:24] VITALS: BP 123/79
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
--- NOTE | 2019-11-28 07:57 | PDOC ---
Exam Note: Kannan Note: This note is a late entry for 11/27/2019 covers elements not covered in my initial note. Subjective: The patient was seen face to face in the evening of 11/27/2019. Nursing report with Nick CLANCY. She reportedly had a great day, somewhat irritable after labs, was yelling, but later joking, appropriate and very verbal and interactive as I met with her at some length in the evening. Review of Systems: No CV, , pulmonary, eye system symptoms on review. Mental Status Exam: Reasonably oriented. She was more animated, appropriate, and significant pseudobulbar affect symptoms seemed to be better. Speech coherent, rapid at times. Abstraction fair. Computation impaired. Language function intact. Mood and affect labile, paranoid, suspicious. No suicidal ideation. Laboratory Data: Reviewed. Valproic acid level is 22. CBC and CMP unremarkable. Impression: Schizoaffective disorder, bipolar type, mixed with psychotic features. Impulse control disorder. Psychotic disorder unspecified. Anxiety disorder unspecified. Plan: Continue psychotropics from initial note. Increase Depakote ER from 500mg h.s. to 1000 mg h.s. Check CBC, CMP, valproic acid level in 3 days. Continue Latuda 40 mg h.s., Ativan p.r.n., Zyprexa p.r.n. Make further adjustments as clinically indicated. If psychotic symptoms persist, we may change the Latuda to Risperdal. Assessment: Vital Signs/I&O: Vital Signs Date Time Temp Pulse Resp B/P (MAP) Pulse Ox O2 Delivery O2 Flow Rate FiO2 11/28/19 06:24 97.5 68 16 123/79 (94) 98 11/27/19 15:59 Room Air I & O 11/27/19 11/27/19 11/28/19 15:00 23:00 07:00 Intake Total 720 ml 480 ml Balance 720 ml 480 ml Labs: Laboratory Tests Test 11/27/19 08:38 White Blood Count 5.8 x10^3/uL (4.0-11.0) Red Blood Count 5.23 x10^6/uL (3.50-5.40) Hemoglobin 14.6 g/dL (12.0-15.5) Hematocrit 43.9 % (36.0-47.0) Mean Corpuscular Volume 84 fL (79-100) Mean Corpuscular Hemoglobin 28 pg (25-35) Mean Corpuscular Hemoglobin Concent 33 g/dL (31-37) Red Cell Distribution Width 14.2 % (11.5-14.5) Platelet Count 351 x10^3/uL (140-400) Neutrophils (%) (Auto) 59 % (31-73) Lymphocytes (%) (Auto) 33 % (24-48) Monocytes (%) (Auto) 8 % (0-9) Eosinophils (%) (Auto) 0 % (0-3) Basophils (%) (Auto) 0 % (0-3) Neutrophils # (Auto) 3.4 x10^3uL (1.8-7.7) Lymphocytes # (Auto) 1.9 x10^3/uL (1.0-4.8) Monocytes # (Auto) 0.5 x10^3/uL (0.0-1.1) Eosinophils # (Auto) 0.0 x10^3/uL (0.0-0.7) Basophils # (Auto) 0.0 x10^3/uL (0.0-0.2) Sodium Level 138 mmol/L (136-145) Potassium Level 3.8 mmol/L (3.5-5.1) Chloride Level 102 mmol/L (98-107) Carbon Dioxide Level 25 mmol/L (21-32) Anion Gap 11 (6-14) Blood Urea Nitrogen 8 mg/dL (7-20) Creatinine 0.9 mg/dL (0.6-1.0) Estimated GFR (Cockcroft-Gault) 78.1 BUN/Creatinine Ratio 9 (6-20) Glucose Level 151 mg/dL (70-99) H Calcium Level 9.1 mg/dL (8.5-10.1) Total Bilirubin 0.3 mg/dL (0.2-1.0) Aspartate Amino Transferase (AST) 16 U/L (15-37) Alanine Aminotransferase (ALT) 22 U/L (14-59) Alkaline Phosphatase 101 U/L (46-116) Total Protein 8.1 g/dL (6.4-8.2) Albumin 3.6 g/dL (3.4-5.0) Albumin/Globulin Ratio 0.8 (1.0-1.7) L Valproic Acid Level 22 mcg/mL (50-100) L Valproic Acid Last Dose Date 11/26/19 Valproic Acid Last Dose Time 2100 Current Medications: Meds: Current Medications Medications (Trade) Dose Ordered Sig/Michael Route PRN Reason Start Time Stop Time Status Last Admin Dose Admin Divalproex Sodium (Depakote Er) 1,000 mg QHS PO 11/27/19 21:00 11/27/19 19:57 I have reviewed the current psychotropics carefully including drug interactions. Risk benefit ratio favors no change other than as noted in my dictated progress note. Diagnosis: Problems: (1) Schizoaffective disorder, bipolar type (2) Impulse control disorder, unspecified (3) Anxiety disorder, unspecified (4) Bipolar disorder, curr episode depressed, severe, w/psychotic features PIETER PRINCE MD Nov 28, 2019 07:57
[2019-11-28] MEDS: LOSARTAN 50 MG TABLET. PO SCH (08:19)
[2019-11-28] MEDS: ASPIRIN CHEWABLE 81 MG TABLET. PO SCH (08:19)
[2019-11-28] MEDS: MULTIVITAMIN with MINERAL TABLET. PO SCH (08:20)
[2019-11-28] MEDS: hydroCHLOROthiazide 12.5 MG CAPSULE PO SCH (08:20)
[2019-11-28] MEDS: amLODIPine BESYLATE 5 MG TABLET PO SCH (08:20)
[2019-11-28] MEDS: PANTOPRAZOLE 40 MG TABLET. PO SCH (08:20)
[2019-11-28 16:01] VITALS: BP 140/86
[2019-11-28] MEDS ORDERED: traZODone 100 MG TABLET. PO PRN (17:00)
[2019-11-28] MEDS: ATORVASTATIN CALCIUM 10 MG TABLET. PO SCH (20:31)
[2019-11-28] MEDS: DOCUSATE SODIUM 100 MG CAPSULE PO SCH (20:31)
[2019-11-28] MEDS: traZODone 100 MG TABLET. PO SCH (20:31)
[2019-11-28] MEDS: PRAZOSIN 1 MG CAPSULE. PO SCH (20:31)
[2019-11-28] MEDS: DIVALPROEX ER 500 MG TAB.ER.24H PO SCH (20:31)
[2019-11-28] MEDS: LURASIDONE 40 MG TABLET. PO SCH (20:31)
[2019-11-28] MEDS: LATANOPROST 0.005% OPHTH SOLUTION 2.5ML BOTTLE. OU SCH (21:00)
[2019-11-29 06:17] VITALS: BP 109/84
--- NOTE | 2019-11-29 06:50 | PDOC ---
Exam Note: Kannan Note: This note is a late entry for 11/28/2019 covers elements not covered in my initial note. Subjective: The patient was seen face to face in the evening of 11/28/2019. Nursing report with Kaye CLANCY. She slept 2 hours previous night. She did well previous night, today she appeared somewhat manic, loud with some mood lability but little better during the day after that. She is agitated at times. She had many questions about discharge plans and I addressed with her. Review of Systems: No CV, , pulmonary, eye system symptoms on review. Mental Status Exam: Reasonably oriented. Speech coherent. Abstraction fair. Computation impaired. Language function intact. Attention span short. Mood and affect more interactive. Laboratory Data: Reviewed. Impression: Schizoaffective disorder, bipolar type, mixed with psychotic features. Impulse control disorder. Psychotic disorder unspecified. Anxiety disorder unspecified. Insomnia. Plan: Continue psychotropics from initial note. Increase trazodone to 100 mg h.s. scheduled and then may repeat x1 p.r.n. insomnia. Valproic acid level is 22 and we have increased the Depakote ER from 500 mg h.s. to 1000 mg p.o. h.s. Check CBC, CMP, valproic acid, level and ammonia level in 3 days. Assessment: Vital Signs/I&O: Vital Signs Date Time Temp Pulse Resp B/P (MAP) Pulse Ox O2 Delivery O2 Flow Rate FiO2 11/29/19 06:17 97.3 77 14 109/84 (92) 98 11/28/19 16:01 Room Air I & O 11/28/19 11/28/19 11/29/19 15:00 23:00 07:00 Intake Total 720 ml 780 ml Balance 720 ml 780 ml Current Medications: Meds: Current Medications Medications (Trade) Dose Ordered Sig/Michael Route PRN Reason Start Time Stop Time Status Last Admin Dose Admin Prazosin HCl (Minipress) 2 mg QHS PO 11/28/19 21:00 11/28/19 20:31 Trazodone HCl (Desyrel) 100 mg QHS PO 11/28/19 21:00 11/28/19 20:31 I have reviewed the current psychotropics carefully including drug interactions. Risk benefit ratio favors no change other than as noted in my dictated progress note. Diagnosis: Problems: (1) Schizoaffective disorder, bipolar type (2) Impulse control disorder, unspecified (3) Anxiety disorder, unspecified (4) Bipolar disorder, curr episode depressed, severe, w/psychotic features PIETER PRINCE MD Nov 29, 2019 06:50
[2019-11-29] MEDS: LOSARTAN 50 MG TABLET. PO SCH (08:21)
[2019-11-29] MEDS: PANTOPRAZOLE 40 MG TABLET. PO SCH (08:21)
[2019-11-29] MEDS: amLODIPine BESYLATE 5 MG TABLET PO SCH (08:21)
[2019-11-29] MEDS: hydroCHLOROthiazide 12.5 MG CAPSULE PO SCH (08:21)
[2019-11-29] MEDS: ASPIRIN CHEWABLE 81 MG TABLET. PO SCH (08:21)
[2019-11-29] MEDS: MULTIVITAMIN with MINERAL TABLET. PO SCH (08:22)
[2019-11-29 16:03] VITALS: BP 148/99
[2019-11-29] MEDS: ATORVASTATIN CALCIUM 10 MG TABLET. PO SCH ×2 (21:00→22:13)
[2019-11-29] MEDS: DIVALPROEX ER 500 MG TAB.ER.24H PO SCH ×3 (21:00→23:53)
--- NOTE | 2019-11-29 22:08 | PDOC ---
Exam Note: Kannan Note: Please also refer to the separate dictated note~for this date of service dictated separately.~Patient seen individually. Discussed the patient with Nursing staff reviewed the chart.~Reviewed interim history and current functioning. Reviewed vital signs,~Labs/ Radiology~and current medications noted below. Continue current treatment with the changes noted in the dictated addendum note Assessment: Vital Signs/I&O: Vital Signs Date Time Temp Pulse Resp B/P (MAP) Pulse Ox O2 Delivery O2 Flow Rate FiO2 11/29/19 16:03 98.4 63 18 148/99 (115) 96 11/28/19 16:01 Room Air I & O 11/28/19 11/28/19 11/29/19 15:00 23:00 07:00 Intake Total 720 ml 780 ml Balance 720 ml 780 ml Current Medications: I have reviewed the current psychotropics carefully including drug interactions. Risk benefit ratio favors no change other than as noted in my dictated progress note. Diagnosis: Problems: (1) Schizoaffective disorder, bipolar type (2) Impulse control disorder, unspecified (3) Anxiety disorder, unspecified (4) Bipolar disorder, curr episode depressed, severe, w/psychotic features PIETER PRINCE MD Nov 29, 2019 22:08
[2019-11-29] MEDS: LATANOPROST 0.005% OPHTH SOLUTION 2.5ML BOTTLE. OU SCH (22:11)
[2019-11-29] MEDS: PRAZOSIN 1 MG CAPSULE. PO SCH (22:12)
[2019-11-29] MEDS: LURASIDONE 40 MG TABLET. PO SCH (22:12)
[2019-11-29] MEDS: DOCUSATE SODIUM 100 MG CAPSULE PO SCH (22:13)
[2019-11-29] MEDS: traZODone 100 MG TABLET. PO SCH (22:13)
[2019-11-30 05:59] VITALS: BP 108/72
[2019-11-30] MEDS: LOSARTAN 50 MG TABLET. PO SCH (08:28)
[2019-11-30] MEDS: ASPIRIN CHEWABLE 81 MG TABLET. PO SCH (08:28)
[2019-11-30] MEDS: hydroCHLOROthiazide 12.5 MG CAPSULE PO SCH (08:28)
[2019-11-30] MEDS: MULTIVITAMIN with MINERAL TABLET. PO SCH (08:29)
[2019-11-30] MEDS: amLODIPine BESYLATE 5 MG TABLET PO SCH (08:29)
[2019-11-30] MEDS: PANTOPRAZOLE 40 MG TABLET. PO SCH (08:29)
[2019-11-30 09:49] LABS: BASO % 0 % (0-3); EOS % 0 % (0-3); HEMATOCRIT 39.7 % (36.0-47.0); HEMOGLOBIN 13.3 g/dL (12.0-15.5); LYMPH # 1.6 x10^3/uL (1.0-4.8); LYMPH % 36 % (24-48); MEAN CORPUSCULAR HEMOGLOBIN 28 pg (25-35); MEAN CORPUSCULAR HGB CONC 34 g/dL (31-37); MEAN CORPUSCULAR VOLUME 83 fL (79-100); MONO # 0.4 x10^3/uL (0.0-1.1); MONO % 10 % (0-9); NEUT # 2.3 x10^3uL (1.8-7.7); NEUT % 54 % (31-73); PLATELET COUNT 304 x10^3/uL (140-400); RED BLOOD COUNT 4.78 x10^6/uL (3.50-5.40); RED CELL DISTRIBUTION WIDTH 14.4 % (11.5-14.5); WHITE BLOOD COUNT 4.3 x10^3/uL (4.0-11.0)
[2019-11-30 10:05] LABS: ALBUMIN 3.4 g/dL (3.4-5.0); ALBUMIN/GLOBULIN RATIO 0.8 (1.0-1.7); ALK PHOS 97 U/L (46-116); ALT (SGPT) 28 U/L (14-59); ANION GAP 9 (6-14); AST (SGOT) 14 U/L (15-37); BLOOD UREA NITROGEN 9 mg/dL (7-20); BUN/CREATININE RATIO 10 (6-20); CALCIUM 8.9 mg/dL (8.5-10.1); CARBON DIOXIDE 28 mmol/L (21-32); CHLORIDE 102 mmol/L (98-107); CREATININE 0.9 mg/dL (0.6-1.0); GFR 78.1; GLUCOSE 112 mg/dL (70-99); POTASSIUM 3.6 mmol/L (3.5-5.1); SODIUM 139 mmol/L (136-145); TOTAL BILIRUBIN 0.3 mg/dL (0.2-1.0); TOTAL PROTEIN 7.7 g/dL (6.4-8.2)
[2019-11-30 10:06] LABS: VAL ACID 65 mcg/mL (50-100)
[2019-11-30 16:01] VITALS: BP 149/69
[2019-11-30] MEDS: traZODone 100 MG TABLET. PO SCH (20:40)
[2019-11-30] MEDS: LATANOPROST 0.005% OPHTH SOLUTION 2.5ML BOTTLE. OU SCH (20:40)
[2019-11-30] MEDS: DIVALPROEX ER 500 MG TAB.ER.24H PO SCH (20:40)
[2019-11-30] MEDS: ATORVASTATIN CALCIUM 10 MG TABLET. PO SCH (20:41)
[2019-11-30] MEDS: DOCUSATE SODIUM 100 MG CAPSULE PO SCH (20:41)
[2019-11-30] MEDS: PRAZOSIN 1 MG CAPSULE. PO SCH (20:41)
[2019-11-30] MEDS ORDERED: risperiDONE 0.5 MG TABLET. PO SCH (21:00)
--- NOTE | 2019-11-30 21:49 | PDOC ---
Exam Note: Kannan Note: Please also refer to the separate dictated note~for this date of service dictated separately.~Patient seen individually. Discussed the patient with Nursing staff reviewed the chart.~Reviewed interim history and current functioning. Reviewed vital signs,~Labs/ Radiology~and current medications noted below. Continue current treatment with the changes noted in the dictated addendum note Assessment: Vital Signs/I&O: Vital Signs Date Time Temp Pulse Resp B/P (MAP) Pulse Ox O2 Delivery O2 Flow Rate FiO2 11/30/19 20:41 64 149/69 11/30/19 16:01 97.2 20 96 11/28/19 16:01 Room Air I & O 11/29/19 11/29/19 11/30/19 15:00 23:00 07:00 Intake Total 1080 ml 660 ml Balance 1080 ml 660 ml Labs: Laboratory Tests Test 11/30/19 09:39 White Blood Count 4.3 x10^3/uL (4.0-11.0) Red Blood Count 4.78 x10^6/uL (3.50-5.40) Hemoglobin 13.3 g/dL (12.0-15.5) Hematocrit 39.7 % (36.0-47.0) Mean Corpuscular Volume 83 fL (79-100) Mean Corpuscular Hemoglobin 28 pg (25-35) Mean Corpuscular Hemoglobin Concent 34 g/dL (31-37) Red Cell Distribution Width 14.4 % (11.5-14.5) Platelet Count 304 x10^3/uL (140-400) Neutrophils (%) (Auto) 54 % (31-73) Lymphocytes (%) (Auto) 36 % (24-48) Monocytes (%) (Auto) 10 % (0-9) H Eosinophils (%) (Auto) 0 % (0-3) Basophils (%) (Auto) 0 % (0-3) Neutrophils # (Auto) 2.3 x10^3uL (1.8-7.7) Lymphocytes # (Auto) 1.6 x10^3/uL (1.0-4.8) Monocytes # (Auto) 0.4 x10^3/uL (0.0-1.1) Eosinophils # (Auto) 0.0 x10^3/uL (0.0-0.7) Basophils # (Auto) 0.0 x10^3/uL (0.0-0.2) Sodium Level 139 mmol/L (136-145) Potassium Level 3.6 mmol/L (3.5-5.1) Chloride Level 102 mmol/L (98-107) Carbon Dioxide Level 28 mmol/L (21-32) Anion Gap 9 (6-14) Blood Urea Nitrogen 9 mg/dL (7-20) Creatinine 0.9 mg/dL (0.6-1.0) Estimated GFR (Cockcroft-Gault) 78.1 BUN/Creatinine Ratio 10 (6-20) Glucose Level 112 mg/dL (70-99) H Calcium Level 8.9 mg/dL (8.5-10.1) Total Bilirubin 0.3 mg/dL (0.2-1.0) Aspartate Amino Transferase (AST) 14 U/L (15-37) L Alanine Aminotransferase (ALT) 28 U/L (14-59) Alkaline Phosphatase 97 U/L (46-116) Ammonia 30 mcmol/L (11-34) Total Protein 7.7 g/dL (6.4-8.2) Albumin 3.4 g/dL (3.4-5.0) Albumin/Globulin Ratio 0.8 (1.0-1.7) L Valproic Acid Level 65 mcg/mL (50-100) Valproic Acid Last Dose Date 11/29/19 Valproic Acid Last Dose Time 0900 Current Medications: Meds: Current Medications Medications (Trade) Dose Ordered Sig/Michael Route PRN Reason Start Time Stop Time Status Last Admin Dose Admin Risperidone (RisperDAL) 0.5 mg QHS PO 11/30/19 21:00 11/30/19 20:41 I have reviewed the current psychotropics carefully including drug interactions. Risk benefit ratio favors no change other than as noted in my dictated progress note. Diagnosis: Problems: (1) Schizoaffective disorder, bipolar type (2) Impulse control disorder, unspecified (3) Anxiety disorder, unspecified (4) Bipolar disorder, curr episode depressed, severe, w/psychotic features PIETER PRINCE MD Nov 30, 2019 21:49
[2019-12-01 06:12] VITALS: BP 124/83
--- NOTE | 2019-12-01 07:49 | PDOC ---
Exam Note: Kannan Note: This note is a late entry for 11/29/2019 covers elements not covered in my initial note. Subjective: The patient was seen face to face in the evening of 11/29/2019. Nursing report with Felecia CLANCY. The patient was noted to be cranky previous night. Today somewhat euphoric, manic. We will check labs in the morning to include valproic acid level. Review of Systems: No CV, , pulmonary, eye system symptoms on review. Ambulation reasonable. Mental Status Exam: Reasonably oriented. Speech coherent. Abstraction fair. Computation impaired. Language function intact. Attention span short. Mood and affect euphoric, manic. Laboratory Data: Reviewed. Impression: Schizoaffective disorder, bipolar type, mixed with psychotic features. Impulse control disorder. Psychotic disorder unspecified. Anxiety disorder unspecified. Insomnia. Plan: Continue psychotropics from initial note. Assessment: Vital Signs/I&O: Vital Signs Date Time Temp Pulse Resp B/P (MAP) Pulse Ox O2 Delivery O2 Flow Rate FiO2 12/01/19 06:12 97.2 68 20 124/83 (97) 95 11/28/19 16:01 Room Air I & O 11/30/19 11/30/19 12/01/19 15:00 23:00 07:00 Intake Total 1080 ml 480 ml Balance 1080 ml 480 ml Labs: Laboratory Tests Test 11/30/19 09:39 White Blood Count 4.3 x10^3/uL (4.0-11.0) Red Blood Count 4.78 x10^6/uL (3.50-5.40) Hemoglobin 13.3 g/dL (12.0-15.5) Hematocrit 39.7 % (36.0-47.0) Mean Corpuscular Volume 83 fL (79-100) Mean Corpuscular Hemoglobin 28 pg (25-35) Mean Corpuscular Hemoglobin Concent 34 g/dL (31-37) Red Cell Distribution Width 14.4 % (11.5-14.5) Platelet Count 304 x10^3/uL (140-400) Neutrophils (%) (Auto) 54 % (31-73) Lymphocytes (%) (Auto) 36 % (24-48) Monocytes (%) (Auto) 10 % (0-9) H Eosinophils (%) (Auto) 0 % (0-3) Basophils (%) (Auto) 0 % (0-3) Neutrophils # (Auto) 2.3 x10^3uL (1.8-7.7) Lymphocytes # (Auto) 1.6 x10^3/uL (1.0-4.8) Monocytes # (Auto) 0.4 x10^3/uL (0.0-1.1) Eosinophils # (Auto) 0.0 x10^3/uL (0.0-0.7) Basophils # (Auto) 0.0 x10^3/uL (0.0-0.2) Sodium Level 139 mmol/L (136-145) Potassium Level 3.6 mmol/L (3.5-5.1) Chloride Level 102 mmol/L (98-107) Carbon Dioxide Level 28 mmol/L (21-32) Anion Gap 9 (6-14) Blood Urea Nitrogen 9 mg/dL (7-20) Creatinine 0.9 mg/dL (0.6-1.0) Estimated GFR (Cockcroft-Gault) 78.1 BUN/Creatinine Ratio 10 (6-20) Glucose Level 112 mg/dL (70-99) H Calcium Level 8.9 mg/dL (8.5-10.1) Total Bilirubin 0.3 mg/dL (0.2-1.0) Aspartate Amino Transferase (AST) 14 U/L (15-37) L Alanine Aminotransferase (ALT) 28 U/L (14-59) Alkaline Phosphatase 97 U/L (46-116) Ammonia 30 mcmol/L (11-34) Total Protein 7.7 g/dL (6.4-8.2) Albumin 3.4 g/dL (3.4-5.0) Albumin/Globulin Ratio 0.8 (1.0-1.7) L Valproic Acid Level 65 mcg/mL (50-100) Valproic Acid Last Dose Date 11/29/19 Valproic Acid Last Dose Time 0900 Current Medications: Meds: Current Medications Medications (Trade) Dose Ordered Sig/Michael Route PRN Reason Start Time Stop Time Status Last Admin Dose Admin Risperidone (RisperDAL) 0.5 mg QHS PO 11/30/19 21:00 11/30/19 20:41 I have reviewed the current psychotropics carefully including drug interactions. Risk benefit ratio favors no change other than as noted in my dictated progress note. Diagnosis: Problems: (1) Schizoaffective disorder, bipolar type (2) Impulse control disorder, unspecified (3) Anxiety disorder, unspecified (4) Bipolar disorder, curr episode depressed, severe, w/psychotic features PIETER PRINCE MD Dec 01, 2019 07:49
--- NOTE | 2019-12-01 07:50 | PDOC ---
Exam Note: Kannan Note: This note is a late entry for 11/30/2019 covers elements not covered in my initial note. Subjective: The patient was seen face to face in the evening of 11/30/2019. Nursing report with Adina CLANCY. She slept 5-1/4 hours previous night. She refused h.s. meds previous night, crying, sucking her thumb, somewhat regressive. Valproic acid level 64. Ammonia 30, which is non-significant. Nursing report states she has a crazy laugh. Received Zyprexa before lab studies this morning and was less anxious. Review of Systems: No CV, , pulmonary, eye system symptoms on review. Mental Status Exam: Reasonably oriented. I met her in the day room at length. Speech coherent. Abstraction fair. Computation impaired. Language function intact. Attention span short. Mood and affect improved. Laboratory Data: Reviewed. Impression: Schizoaffective disorder, bipolar type, mixed with psychotic features. Impulse control disorder. Psychotic disorder unspecified. Anxiety disorder unspecified. Insomnia. Plan: Continue psychotropics from initial note. Assessment: Vital Signs/I&O: Vital Signs Date Time Temp Pulse Resp B/P (MAP) Pulse Ox O2 Delivery O2 Flow Rate FiO2 12/01/19 06:12 97.2 68 20 124/83 (97) 95 11/28/19 16:01 Room Air I & O 11/30/19 11/30/19 12/01/19 15:00 23:00 07:00 Intake Total 1080 ml 480 ml Balance 1080 ml 480 ml Labs: Laboratory Tests Test 11/30/19 09:39 White Blood Count 4.3 x10^3/uL (4.0-11.0) Red Blood Count 4.78 x10^6/uL (3.50-5.40) Hemoglobin 13.3 g/dL (12.0-15.5) Hematocrit 39.7 % (36.0-47.0) Mean Corpuscular Volume 83 fL (79-100) Mean Corpuscular Hemoglobin 28 pg (25-35) Mean Corpuscular Hemoglobin Concent 34 g/dL (31-37) Red Cell Distribution Width 14.4 % (11.5-14.5) Platelet Count 304 x10^3/uL (140-400) Neutrophils (%) (Auto) 54 % (31-73) Lymphocytes (%) (Auto) 36 % (24-48) Monocytes (%) (Auto) 10 % (0-9) H Eosinophils (%) (Auto) 0 % (0-3) Basophils (%) (Auto) 0 % (0-3) Neutrophils # (Auto) 2.3 x10^3uL (1.8-7.7) Lymphocytes # (Auto) 1.6 x10^3/uL (1.0-4.8) Monocytes # (Auto) 0.4 x10^3/uL (0.0-1.1) Eosinophils # (Auto) 0.0 x10^3/uL (0.0-0.7) Basophils # (Auto) 0.0 x10^3/uL (0.0-0.2) Sodium Level 139 mmol/L (136-145) Potassium Level 3.6 mmol/L (3.5-5.1) Chloride Level 102 mmol/L (98-107) Carbon Dioxide Level 28 mmol/L (21-32) Anion Gap 9 (6-14) Blood Urea Nitrogen 9 mg/dL (7-20) Creatinine 0.9 mg/dL (0.6-1.0) Estimated GFR (Cockcroft-Gault) 78.1 BUN/Creatinine Ratio 10 (6-20) Glucose Level 112 mg/dL (70-99) H Calcium Level 8.9 mg/dL (8.5-10.1) Total Bilirubin 0.3 mg/dL (0.2-1.0) Aspartate Amino Transferase (AST) 14 U/L (15-37) L Alanine Aminotransferase (ALT) 28 U/L (14-59) Alkaline Phosphatase 97 U/L (46-116) Ammonia 30 mcmol/L (11-34) Total Protein 7.7 g/dL (6.4-8.2) Albumin 3.4 g/dL (3.4-5.0) Albumin/Globulin Ratio 0.8 (1.0-1.7) L Valproic Acid Level 65 mcg/mL (50-100) Valproic Acid Last Dose Date 11/29/19 Valproic Acid Last Dose Time 0900 Current Medications: Meds: Current Medications Medications (Trade) Dose Ordered Sig/Michael Route PRN Reason Start Time Stop Time Status Last Admin Dose Admin Risperidone (RisperDAL) 0.5 mg QHS PO 11/30/19 21:00 11/30/19 20:41 I have reviewed the current psychotropics carefully including drug interactions. Risk benefit ratio favors no change other than as noted in my dictated progress note. Diagnosis: Problems: (1) Schizoaffective disorder, bipolar type (2) Impulse control disorder, unspecified (3) Anxiety disorder, unspecified (4) Bipolar disorder, curr episode depressed, severe, w/psychotic features PIETER PRINCE MD Dec 01, 2019 07:50
[2019-12-01] MEDS: PANTOPRAZOLE 40 MG TABLET. PO SCH (08:39)
[2019-12-01] MEDS: hydroCHLOROthiazide 12.5 MG CAPSULE PO SCH (08:39)
[2019-12-01] MEDS: amLODIPine BESYLATE 5 MG TABLET PO SCH (08:40)
[2019-12-01] MEDS: LOSARTAN 50 MG TABLET. PO SCH (08:40)
[2019-12-01] MEDS: ASPIRIN CHEWABLE 81 MG TABLET. PO SCH (08:41)
[2019-12-01] MEDS: MULTIVITAMIN with MINERAL TABLET. PO SCH (08:41)
[2019-12-01 15:50] VITALS: BP 134/70
[2019-12-01] MEDS: PRAZOSIN 1 MG CAPSULE. PO SCH (21:06)
[2019-12-01] MEDS: DOCUSATE SODIUM 100 MG CAPSULE PO SCH (21:06)
[2019-12-01] MEDS: ATORVASTATIN CALCIUM 10 MG TABLET. PO SCH (21:06)
[2019-12-01] MEDS: LATANOPROST 0.005% OPHTH SOLUTION 2.5ML BOTTLE. OU SCH (21:06)
[2019-12-01] MEDS: traZODone 100 MG TABLET. PO SCH (21:07)
[2019-12-01] MEDS: DIVALPROEX ER 500 MG TAB.ER.24H PO SCH (21:07)
[2019-12-01] MEDS: risperiDONE 1 MG TABLET. PO SCH (21:07)
--- NOTE | 2019-12-01 22:11 | PDOC ---
Exam Note: Kannan Note: Please also refer to the separate dictated note~for this date of service dictated separately.~Patient seen individually. Discussed the patient with Nursing staff reviewed the chart.~Reviewed interim history and current functioning. Reviewed vital signs,~Labs/ Radiology~and current medications noted below. Continue current treatment with the changes noted in the dictated addendum note Assessment: Vital Signs/I&O: Vital Signs Date Time Temp Pulse Resp B/P (MAP) Pulse Ox O2 Delivery O2 Flow Rate FiO2 12/01/19 21:06 71 134/70 12/01/19 15:50 98.5 18 98 11/28/19 16:01 Room Air I & O 11/30/19 11/30/19 12/01/19 15:00 23:00 07:00 Intake Total 1080 ml 480 ml Balance 1080 ml 480 ml Current Medications: Meds: Current Medications Medications (Trade) Dose Ordered Sig/Michael Route PRN Reason Start Time Stop Time Status Last Admin Dose Admin Risperidone (RisperDAL) 1 mg QHS PO 12/01/19 21:00 12/01/19 21:07 I have reviewed the current psychotropics carefully including drug interactions. Risk benefit ratio favors no change other than as noted in my dictated progress note. Diagnosis: Problems: (1) Schizoaffective disorder, bipolar type (2) Impulse control disorder, unspecified (3) Anxiety disorder, unspecified (4) Bipolar disorder, curr episode depressed, severe, w/psychotic features PIETER PRINCE MD Dec 01, 2019 22:11
[2019-12-02 05:29] VITALS: BP 140/75
[2019-12-02 06:17] LABS: BASO % 0 % (0-3); EOS % 0 % (0-3); HEMATOCRIT 37.2 % (36.0-47.0); HEMOGLOBIN 12.8 g/dL (12.0-15.5); LYMPH # 1.8 x10^3/uL (1.0-4.8); LYMPH % 41 % (24-48); MEAN CORPUSCULAR HEMOGLOBIN 29 pg (25-35); MEAN CORPUSCULAR HGB CONC 34 g/dL (31-37); MEAN CORPUSCULAR VOLUME 83 fL (79-100); MONO # 0.4 x10^3/uL (0.0-1.1); MONO % 10 % (0-9); NEUT # 2.1 x10^3uL (1.8-7.7); NEUT % 49 % (31-73); PLATELET COUNT 271 x10^3/uL (140-400); RED BLOOD COUNT 4.48 x10^6/uL (3.50-5.40); RED CELL DISTRIBUTION WIDTH 14.5 % (11.5-14.5); WHITE BLOOD COUNT 4.4 x10^3/uL (4.0-11.0)
[2019-12-02 06:35] LABS: ALBUMIN 3.1 g/dL (3.4-5.0); ALBUMIN/GLOBULIN RATIO 0.8 (1.0-1.7); CALCIUM 8.6 mg/dL (8.5-10.1); CREATININE 0.9 mg/dL (0.6-1.0); GFR 78.1; POTASSIUM 3.6 mmol/L (3.5-5.1); TOTAL BILIRUBIN 0.3 mg/dL (0.2-1.0); TOTAL PROTEIN 7.1 g/dL (6.4-8.2)
--- NOTE | 2019-12-02 07:56 | PN ---
DATE: 12/01/2019 PSYCHIATRIC PROGRESS NOTE This late entry 11/30 covers elements not covered in my initial note. SUBJECTIVE: I met with the patient evening of 11/30. Per JULIETH Holden, the patient slept 5-1/2 hours previous night. She has been angry at nursing staff, labile in her mood, obsessed about wanting to go home. She was pleasant in the morning. In the evening as I met with her, she was initially on the telephone with her daughter Olena, but did hang up the call to meet with me. She was quite agitated around lunchtime, very suddenly left the dining room area. Nursing staff checked with Olena on this and daughter indicated the patient frequently does this as part of her mood lability, psychotic symptoms. She was talking to nursing staff about wanting to have a baby with her . REVIEW OF SYSTEMS: No CV, , pulmonary, eye system symptoms on review. MENTAL STATUS EXAM: Oriented to herself and situation. Speech is coherent, rapid at times. Abstraction fair, computation impaired, language function intact, attention span short. Mood and affect remain somewhat labile and grandiose at times. LABORATORY DATA: Reviewed. IMPRESSION: Schizoaffective disorder, bipolar type, mixed; anxiety disorder, unspecified. PLAN: Continue psychotropics from initial note. Increase Risperdal 0.5 mg at bedtime to 1 mg at bedtime. Rest unchanged for now. MAN Arlene PRINCE MD DR: DANDY/leeann JOB#: [id number] / [id number]
[2019-12-02] MEDS: hydroCHLOROthiazide 12.5 MG CAPSULE PO SCH (08:34)
[2019-12-02] MEDS: PANTOPRAZOLE 40 MG TABLET. PO SCH (08:35)
[2019-12-02] MEDS: LOSARTAN 50 MG TABLET. PO SCH (08:35)
[2019-12-02] MEDS: MULTIVITAMIN with MINERAL TABLET. PO SCH (08:35)
[2019-12-02] MEDS: amLODIPine BESYLATE 5 MG TABLET PO SCH (08:35)
[2019-12-02] MEDS: ASPIRIN CHEWABLE 81 MG TABLET. PO SCH (08:35)
--- NOTE | 2019-12-02 12:01 | TX PLAN ---
Interdisciplinary Tx Plan Admission Information Nov 22, 2019 at 16:48 Legal Status (on Admission): Voluntary DPOA/Guardian Name: Olena Duval Contact Other Contact Verified Code Status: Full Code Allergies: Coded Allergies: milk (Verified Allergy, Unknown, 11/22/19) pollen extracts (Verified Allergy, Unknown, 11/22/19) Diagnoses Primary Diagnosis: Schizoaffective D/O, Impulse Control D/O Reasons for Admission: Hallucinations, Suicidal ideation Problem in Patient's Words: She has had months of poor behavior and I think it is from the whole Covoid, stay at home orders. Additional Admission Comments: According to the intake, pt made a SI statement with a plan to walk in front of a bus. Pt has been off her meds at times Problems Active Problems: Hallucinations Isolation for Covoid screen Inactive Problems: Currently denying SI Medication compliance Pt Strengths/Limitations Ability for [place]: Fair Cognitive Functioning/Ability: Fair Communication Skills/Ability: Fair Financial Resources: Fair Insight/Judgement: Poor Intellectual Ability: Fair Physical Health: Poor Social Skills: Fair Stability in Family: Good Stability in School/Work: Fair Verbal Skills: Fair Discharge Criteria Discharge Criteria: Able meet basic life need, Adequate arrangements @DC, Improved behavior, Improved mood/thought Preliminary Discharge Plan Preliminary DC Plan: Current Living Arrange. Special Precautions Fall Risk: Low Initial D/C Plan Pt will plan to discharge back home with PACE services Identified Discharge Needs: continued PACE services Mental Health Needs Currently Utilized Resources Currently Utilized Resources/P: PACE services Identified Problems/Hx/Goals Objectives/Short-Term Goals Short Term Goals: Dec. Outbursts, Improved Social Skills, Medication Stabilization, Promote Coping Skill, Other Short Term Goals in Patient's: N/A Interventions/Frequency Staff Interventions/Frequency&: Psychiatrist to assess pt at least 3x per week. Social Work to assess pt at least 2x per week.\\ Nursing to assess medications, behaviors and complete 15 minute checks daily. Encourage group participation OR 1:1 engagement based off activity dept assessment and goals. 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 Education: Pt graduated hs (highest level completed was 12th grade) Community Follow-up Continued PACE services Community Provider/Family Inpu: After her medications get adjusted and we can get her more active, I think she will be just fine. Treatment Plan Explained Patient/Manager Mission had this treatment plan explained to him/her as indicated by the signature below and has been given the opportunity to ask questions and make suggestions: Date: Patient/Manager Mission Signature: Status Update Update Pt is eating almost 100% of meals and sleeping on average 5 hours per night. Pt continues to have inappropriate laughter, some mood lability, but compliant with all cares and assessments. Pt also has periods of making some sexually inappropriate comments but can be easily redirected from this. Pt is very interactive with staff and her peers; she sings hymns for some and prays with others. Pt does report waning to discharge and talked to nursing about her plans in the event that she gets "bad thoughts in her head". Pt will discharge home with continued PACE services and look towards a Friday discharge. SW will work with pt family and the PACE SW to make sure that all arrangements can be set up for pt at that time. SKYE ROBLES Dec 02, 2019 12:01
[2019-12-02 15:33] VITALS: BP 132/78
[2019-12-02] MEDS: traZODone 100 MG TABLET. PO SCH (20:58)
[2019-12-02] MEDS: risperiDONE 1 MG TABLET. PO SCH (20:58)
[2019-12-02] MEDS: DOCUSATE SODIUM 100 MG CAPSULE PO SCH (20:58)
[2019-12-02] MEDS: DIVALPROEX ER 500 MG TAB.ER.24H PO SCH (20:58)
[2019-12-02] MEDS: ATORVASTATIN CALCIUM 10 MG TABLET. PO SCH (20:58)
[2019-12-02] MEDS: LATANOPROST 0.005% OPHTH SOLUTION 2.5ML BOTTLE. OU SCH (20:59)
[2019-12-02] MEDS: PRAZOSIN 1 MG CAPSULE. PO SCH (20:59)
--- NOTE | 2019-12-02 22:25 | PDOC ---
Exam Note: Kannan Note: Please also refer to the separate dictated note~for this date of service dictated separately.~Patient seen individually. Discussed the patient with Nursing staff reviewed the chart.~Reviewed interim history and current functioning. Reviewed vital signs,~Labs/ Radiology~and current medications noted below. Continue current treatment with the changes noted in the dictated addendum note Assessment: Vital Signs/I&O: Vital Signs Date Time Temp Pulse Resp B/P (MAP) Pulse Ox O2 Delivery O2 Flow Rate FiO2 12/02/19 20:59 78 132/78 12/02/19 15:33 97.7 16 96 12/02/19 05:29 Room Air I & O 12/01/19 12/01/19 12/02/19 15:00 23:00 07:00 Intake Total 720 ml 480 ml Balance 720 ml 480 ml Labs: Laboratory Tests Test 12/02/19 06:00 White Blood Count 4.4 x10^3/uL (4.0-11.0) Red Blood Count 4.48 x10^6/uL (3.50-5.40) Hemoglobin 12.8 g/dL (12.0-15.5) Hematocrit 37.2 % (36.0-47.0) Mean Corpuscular Volume 83 fL (79-100) Mean Corpuscular Hemoglobin 29 pg (25-35) Mean Corpuscular Hemoglobin Concent 34 g/dL (31-37) Red Cell Distribution Width 14.5 % (11.5-14.5) Platelet Count 271 x10^3/uL (140-400) Neutrophils (%) (Auto) 49 % (31-73) Lymphocytes (%) (Auto) 41 % (24-48) Monocytes (%) (Auto) 10 % (0-9) H Eosinophils (%) (Auto) 0 % (0-3) Basophils (%) (Auto) 0 % (0-3) Neutrophils # (Auto) 2.1 x10^3uL (1.8-7.7) Lymphocytes # (Auto) 1.8 x10^3/uL (1.0-4.8) Monocytes # (Auto) 0.4 x10^3/uL (0.0-1.1) Eosinophils # (Auto) 0.0 x10^3/uL (0.0-0.7) Basophils # (Auto) 0.0 x10^3/uL (0.0-0.2) Sodium Level 142 mmol/L (136-145) Potassium Level 3.6 mmol/L (3.5-5.1) Chloride Level 105 mmol/L (98-107) Carbon Dioxide Level 28 mmol/L (21-32) Anion Gap 9 (6-14) Blood Urea Nitrogen 8 mg/dL (7-20) Creatinine 0.9 mg/dL (0.6-1.0) Estimated GFR (Cockcroft-Gault) 78.1 BUN/Creatinine Ratio 9 (6-20) Glucose Level 108 mg/dL (70-99) H Calcium Level 8.6 mg/dL (8.5-10.1) Total Bilirubin 0.3 mg/dL (0.2-1.0) Aspartate Amino Transferase (AST) 16 U/L (15-37) Alanine Aminotransferase (ALT) 22 U/L (14-59) Alkaline Phosphatase 88 U/L (46-116) Total Protein 7.1 g/dL (6.4-8.2) Albumin 3.1 g/dL (3.4-5.0) L Albumin/Globulin Ratio 0.8 (1.0-1.7) L Current Medications: I have reviewed the current psychotropics carefully including drug interactions. Risk benefit ratio favors no change other than as noted in my dictated progress note. Diagnosis: Problems: (1) Schizoaffective disorder, bipolar type (2) Impulse control disorder, unspecified (3) Anxiety disorder, unspecified (4) Bipolar disorder, curr episode depressed, severe, w/psychotic features PIETER PRINCE MD Dec 02, 2019 22:25
[2019-12-03 05:53] VITALS: BP 103/68
[2019-12-03] MEDS: ASPIRIN CHEWABLE 81 MG TABLET. PO SCH (07:44)
[2019-12-03] MEDS: PANTOPRAZOLE 40 MG TABLET. PO SCH (07:44)
[2019-12-03] MEDS: LOSARTAN 50 MG TABLET. PO SCH (07:45)
[2019-12-03] MEDS: hydroCHLOROthiazide 12.5 MG CAPSULE PO SCH (07:45)
[2019-12-03] MEDS: MULTIVITAMIN with MINERAL TABLET. PO SCH (07:46)
[2019-12-03] MEDS: amLODIPine BESYLATE 5 MG TABLET PO SCH (07:46)
[2019-12-03 15:42] VITALS: BP 133/85
[2019-12-03] MEDS ORDERED: traZODone 150 MG TABLET. PO PRN (20:00)
[2019-12-03] MEDS: DIVALPROEX ER 500 MG TAB.ER.24H PO SCH (21:20)
[2019-12-03] MEDS: MELATONIN 3 MG TABLET PO SCH (21:20)
[2019-12-03] MEDS: risperiDONE 1 MG TABLET. PO SCH (21:20)
[2019-12-03] MEDS: ATORVASTATIN CALCIUM 10 MG TABLET. PO SCH (21:20)
[2019-12-03] MEDS: DOCUSATE SODIUM 100 MG CAPSULE PO SCH (21:20)
[2019-12-03] MEDS: traZODone 150 MG TABLET. PO SCH (21:23)
[2019-12-03] MEDS: PRAZOSIN 1 MG CAPSULE. PO SCH (21:23)
[2019-12-03] MEDS: LATANOPROST 0.005% OPHTH SOLUTION 2.5ML BOTTLE. OU SCH (21:23)
--- NOTE | 2019-12-03 22:19 | PDOC ---
Exam Note: Kannan Note: Please also refer to the separate dictated note~for this date of service dictated separately.~Patient seen individually. Discussed the patient with Nursing staff reviewed the chart.~Reviewed interim history and current functioning. Reviewed vital signs,~Labs/ Radiology~and current medications noted below. Continue current treatment with the changes noted in the dictated addendum note Assessment: Vital Signs/I&O: Vital Signs Date Time Temp Pulse Resp B/P (MAP) Pulse Ox O2 Delivery O2 Flow Rate FiO2 12/03/19 21:23 97 133/85 12/03/19 15:42 98.4 16 95 12/02/19 05:29 Room Air I & O 12/02/19 12/02/19 12/03/19 15:00 23:00 07:00 Intake Total 1200 ml 840 ml Balance 1200 ml 840 ml Current Medications: Meds: Current Medications Medications (Trade) Dose Ordered Sig/Michael Route PRN Reason Start Time Stop Time Status Last Admin Dose Admin Prazosin HCl (Minipress) 3 mg QHS PO 12/03/19 21:00 12/03/19 21:23 Trazodone HCl (Desyrel) 150 mg QHS PO 12/03/19 21:00 12/03/19 21:23 Melatonin (Melatonin) 3 mg HS PO 12/03/19 21:00 12/03/19 21:20 I have reviewed the current psychotropics carefully including drug interactions. Risk benefit ratio favors no change other than as noted in my dictated progress note. Diagnosis: Problems: (1) Schizoaffective disorder, bipolar type (2) Impulse control disorder, unspecified (3) Anxiety disorder, unspecified (4) Bipolar disorder, curr episode depressed, severe, w/psychotic features PIETER PRINCE MD Dec 03, 2019 22:19
[2019-12-04 06:01] VITALS: BP 107/68
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
[2019-12-04] MEDS: hydroCHLOROthiazide 12.5 MG CAPSULE PO SCH (08:59)
[2019-12-04] MEDS: LOSARTAN 50 MG TABLET. PO SCH (08:59)
[2019-12-04] MEDS: MULTIVITAMIN with MINERAL TABLET. PO SCH (08:59)
[2019-12-04] MEDS: PANTOPRAZOLE 40 MG TABLET. PO SCH (08:59)
[2019-12-04] MEDS: amLODIPine BESYLATE 5 MG TABLET PO SCH (08:59)
[2019-12-04] MEDS: ASPIRIN CHEWABLE 81 MG TABLET. PO SCH (08:59)
[2019-12-04 15:52] VITALS: BP 123/85
[2019-12-04] MEDS: LATANOPROST 0.005% OPHTH SOLUTION 2.5ML BOTTLE. OU SCH (20:37)
[2019-12-04] MEDS: ATORVASTATIN CALCIUM 10 MG TABLET. PO SCH (20:37)
[2019-12-04] MEDS: PRAZOSIN 1 MG CAPSULE. PO SCH (20:38)
[2019-12-04] MEDS: MELATONIN 3 MG TABLET PO SCH (20:39)
[2019-12-04] MEDS: DOCUSATE SODIUM 100 MG CAPSULE PO SCH (20:39)
[2019-12-04] MEDS: risperiDONE 1 MG TABLET. PO SCH (20:40)
[2019-12-04] MEDS: traZODone 150 MG TABLET. PO SCH (20:41)
[2019-12-04] MEDS: DIVALPROEX ER 500 MG TAB.ER.24H PO SCH (20:41)
--- NOTE | 2019-12-04 22:12 | PDOC ---
Exam Note: Kannan Note: Please also refer to the separate dictated note~for this date of service dictated separately.~Patient seen individually. Discussed the patient with Nursing staff reviewed the chart.~Reviewed interim history and current functioning. Reviewed vital signs,~Labs/ Radiology~and current medications noted below. Continue current treatment with the changes noted in the dictated addendum note Assessment: Vital Signs/I&O: Vital Signs Date Time Temp Pulse Resp B/P (MAP) Pulse Ox O2 Delivery O2 Flow Rate FiO2 12/04/19 20:38 68 123/85 12/04/19 15:52 97.7 16 96 12/04/19 06:01 Room Air I & O 12/03/19 12/03/19 12/04/19 15:00 23:00 07:00 Intake Total 890 ml 360 ml Balance 890 ml 360 ml Current Medications: I have reviewed the current psychotropics carefully including drug interactions. Risk benefit ratio favors no change other than as noted in my dictated progress note. Diagnosis: Problems: (1) Schizoaffective disorder, bipolar type (2) Impulse control disorder, unspecified (3) Anxiety disorder, unspecified (4) Bipolar disorder, curr episode depressed, severe, w/psychotic features PIETER PRINCE MD Dec 04, 2019 22:12
[2019-12-05 06:07] VITALS: BP 137/73
[2019-12-05 07:23] LABS: BASO % 1 % (0-3); EOS % 1 % (0-3); HEMOGLOBIN 13.5 g/dL (12.0-15.5); LYMPH % 40 % (24-48); MEAN CORPUSCULAR HEMOGLOBIN 28 pg (25-35); MEAN CORPUSCULAR HGB CONC 34 g/dL (31-37); MEAN CORPUSCULAR VOLUME 84 fL (79-100); MONO # 0.5 x10^3/uL (0.0-1.1); MONO % 11 % (0-9); NEUT # 2.4 x10^3uL (1.8-7.7); NEUT % 49 % (31-73); PLATELET COUNT 242 x10^3/uL (140-400); RED BLOOD COUNT 4.78 x10^6/uL (3.50-5.40); RED CELL DISTRIBUTION WIDTH 14.6 % (11.5-14.5)
[2019-12-05] MEDS: MULTIVITAMIN with MINERAL TABLET. PO SCH (07:39)
[2019-12-05] MEDS: ASPIRIN CHEWABLE 81 MG TABLET. PO SCH (07:39)
[2019-12-05] MEDS: LOSARTAN 50 MG TABLET. PO SCH (07:39)
[2019-12-05] MEDS: PANTOPRAZOLE 40 MG TABLET. PO SCH (07:39)
[2019-12-05] MEDS: hydroCHLOROthiazide 12.5 MG CAPSULE PO SCH (07:39)
[2019-12-05] MEDS: amLODIPine BESYLATE 5 MG TABLET PO SCH (07:40)
[2019-12-05 07:55] LABS: ALBUMIN 3.6 g/dL (3.4-5.0); ALBUMIN/GLOBULIN RATIO 0.9 (1.0-1.7); CALCIUM 9.1 mg/dL (8.5-10.1); GFR 69.1; POTASSIUM 3.6 mmol/L (3.5-5.1); TOTAL BILIRUBIN 0.2 mg/dL (0.2-1.0); TOTAL PROTEIN 7.8 g/dL (6.4-8.2)
--- NOTE | 2019-12-05 15:17 | PN ---
DATE: 12/04/2019 PSYCHIATRIC PROGRESS NOTE This late entry 12/04/2019 covers elements not covered in my initial note. SUBJECTIVE: I met with the patient evening of 12/04/2019. Per JULIETH Beckham, the patient slept 7-1/4 hours previous night, which is quite an improvement from the 1-1/4 hours the night before. She does get quite agitated with lab draws. She slept through breakfast and went to lunch. REVIEW OF SYSTEMS: No CV, , pulmonary, eye system symptoms on review. MENTAL STATUS EXAM: Reasonably oriented. Speech is coherent, still somewhat pressured. Abstraction fair, computation impaired, language function intact, attention span short. Mood and affect showing some improvement in lability. LABORATORY DATA: Reviewed. IMPRESSION: Unchanged from initial note. PLAN: No change from initial note and persevere with changes made in her psychotropics on 12/03/2019. PIETER PRINCE MD DR: DANDY/leeann JOB#: [id number] / [id number]
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
[2019-12-05 16:58] VITALS: BP 139/89
[2019-12-05] MEDS: DOCUSATE SODIUM 100 MG CAPSULE PO SCH (20:50)
[2019-12-05] MEDS: LATANOPROST 0.005% OPHTH SOLUTION 2.5ML BOTTLE. OU SCH (20:50)
[2019-12-05] MEDS: MELATONIN 3 MG TABLET PO SCH (20:50)
[2019-12-05] MEDS: DIVALPROEX ER 500 MG TAB.ER.24H PO SCH (20:51)
[2019-12-05] MEDS: traZODone 150 MG TABLET. PO SCH (20:51)
[2019-12-05] MEDS: PRAZOSIN 1 MG CAPSULE. PO SCH (20:52)
[2019-12-05] MEDS: risperiDONE 1 MG TABLET. PO SCH (20:52)
[2019-12-05] MEDS: ATORVASTATIN CALCIUM 10 MG TABLET. PO SCH (20:53)
--- NOTE | 2019-12-05 22:18 | PDOC ---
Exam Note: Kannan Note: Please also refer to the separate dictated note~for this date of service dictated separately.~Patient seen individually. Discussed the patient with Nursing staff reviewed the chart.~Reviewed interim history and current functioning. Reviewed vital signs,~Labs/ Radiology~and current medications noted below. Continue current treatment with the changes noted in the dictated addendum note Assessment: Vital Signs/I&O: Vital Signs Date Time Temp Pulse Resp B/P (MAP) Pulse Ox O2 Delivery O2 Flow Rate FiO2 12/05/19 20:52 70 139/89 12/05/19 16:58 98.7 18 100 12/05/19 06:07 Room Air I & O 12/04/19 12/04/19 12/05/19 14:59 22:59 06:59 Intake Total 720 ml 600 ml Balance 720 ml 600 ml Labs: Laboratory Tests Test 12/05/19 06:30 White Blood Count 5.0 x10^3/uL (4.0-11.0) Red Blood Count 4.78 x10^6/uL (3.50-5.40) Hemoglobin 13.5 g/dL (12.0-15.5) Hematocrit 40.0 % (36.0-47.0) Mean Corpuscular Volume 84 fL (79-100) Mean Corpuscular Hemoglobin 28 pg (25-35) Mean Corpuscular Hemoglobin Concent 34 g/dL (31-37) Red Cell Distribution Width 14.6 % (11.5-14.5) H Platelet Count 242 x10^3/uL (140-400) Neutrophils (%) (Auto) 49 % (31-73) Lymphocytes (%) (Auto) 40 % (24-48) Monocytes (%) (Auto) 11 % (0-9) H Eosinophils (%) (Auto) 1 % (0-3) Basophils (%) (Auto) 1 % (0-3) Neutrophils # (Auto) 2.4 x10^3uL (1.8-7.7) Lymphocytes # (Auto) 2.0 x10^3/uL (1.0-4.8) Monocytes # (Auto) 0.5 x10^3/uL (0.0-1.1) Eosinophils # (Auto) 0.0 x10^3/uL (0.0-0.7) Basophils # (Auto) 0.0 x10^3/uL (0.0-0.2) Sodium Level 137 mmol/L (136-145) Potassium Level 3.6 mmol/L (3.5-5.1) Chloride Level 100 mmol/L (98-107) Carbon Dioxide Level 26 mmol/L (21-32) Anion Gap 11 (6-14) Blood Urea Nitrogen 9 mg/dL (7-20) Creatinine 1.0 mg/dL (0.6-1.0) Estimated GFR (Cockcroft-Gault) 69.1 BUN/Creatinine Ratio 9 (6-20) Glucose Level 151 mg/dL (70-99) H Calcium Level 9.1 mg/dL (8.5-10.1) Total Bilirubin 0.2 mg/dL (0.2-1.0) Aspartate Amino Transferase (AST) 21 U/L (15-37) Alanine Aminotransferase (ALT) 27 U/L (14-59) Alkaline Phosphatase 98 U/L (46-116) Total Protein 7.8 g/dL (6.4-8.2) Albumin 3.6 g/dL (3.4-5.0) Albumin/Globulin Ratio 0.9 (1.0-1.7) L Current Medications: I have reviewed the current psychotropics carefully including drug interactions. Risk benefit ratio favors no change other than as noted in my dictated progress note. Diagnosis: Problems: (1) Schizoaffective disorder, bipolar type (2) Impulse control disorder, unspecified (3) Anxiety disorder, unspecified (4) Bipolar disorder, curr episode depressed, severe, w/psychotic features PIETER PRINCE MD Dec 05, 2019 22:18
[2019-12-06 05:59] VITALS: BP 124/72
[2019-12-06] MEDS: amLODIPine BESYLATE 5 MG TABLET PO SCH (08:44)
[2019-12-06] MEDS: MULTIVITAMIN with MINERAL TABLET. PO SCH (08:44)
[2019-12-06] MEDS: hydroCHLOROthiazide 12.5 MG CAPSULE PO SCH (08:44)
[2019-12-06] MEDS: ASPIRIN CHEWABLE 81 MG TABLET. PO SCH (08:44)
[2019-12-06] MEDS: LOSARTAN 50 MG TABLET. PO SCH (08:44)
[2019-12-06] MEDS: PANTOPRAZOLE 40 MG TABLET. PO SCH (08:45)
[2019-12-06 16:11] VITALS: BP 140/74
[2019-12-06] MEDS: PRAZOSIN 1 MG CAPSULE. PO SCH (20:31)
[2019-12-06] MEDS: DOCUSATE SODIUM 100 MG CAPSULE PO SCH (20:31)
[2019-12-06] MEDS: MELATONIN 3 MG TABLET PO SCH (20:31)
[2019-12-06] MEDS: ATORVASTATIN CALCIUM 10 MG TABLET. PO SCH (20:32)
[2019-12-06] MEDS: DIVALPROEX ER 500 MG TAB.ER.24H PO SCH (20:32)
[2019-12-06] MEDS: risperiDONE 1 MG TABLET. PO SCH (20:32)
[2019-12-06] MEDS: traZODone 150 MG TABLET. PO SCH (20:32)
[2019-12-06] MEDS: LATANOPROST 0.005% OPHTH SOLUTION 2.5ML BOTTLE. OU SCH (20:33)
--- NOTE | 2019-12-06 22:15 | PDOC ---
Exam Note: Kannan Note: Please also refer to the separate dictated note~for this date of service dictated separately.~Patient seen individually. Discussed the patient with Nursing staff reviewed the chart.~Reviewed interim history and current functioning. Reviewed vital signs,~Labs/ Radiology~and current medications noted below. Continue current treatment with the changes noted in the dictated addendum note Assessment: Vital Signs/I&O: Vital Signs Date Time Temp Pulse Resp B/P (MAP) Pulse Ox O2 Delivery O2 Flow Rate FiO2 12/06/19 20:31 70 140/74 12/06/19 16:11 98.1 18 99 12/05/19 06:07 Room Air I & O 12/05/19 12/05/19 12/06/19 15:00 23:00 07:00 Intake Total 900 ml 540 ml Balance 900 ml 540 ml Current Medications: I have reviewed the current psychotropics carefully including drug interactions. Risk benefit ratio favors no change other than as noted in my dictated progress note. Diagnosis: Problems: (1) Schizoaffective disorder, bipolar type (2) Impulse control disorder, unspecified (3) Anxiety disorder, unspecified (4) Bipolar disorder, curr episode depressed, severe, w/psychotic features PIETER PRINCE MD Dec 06, 2019 22:15
[2019-12-07 06:32] VITALS: BP 108/66
[2019-12-07] MEDS: PANTOPRAZOLE 40 MG TABLET. PO SCH (08:29)
[2019-12-07] MEDS: hydroCHLOROthiazide 12.5 MG CAPSULE PO SCH (08:29)
[2019-12-07] MEDS: MULTIVITAMIN with MINERAL TABLET. PO SCH (08:29)
[2019-12-07 08:30] VITALS: BP 135/84
[2019-12-07] MEDS: LOSARTAN 50 MG TABLET. PO SCH (08:30)
[2019-12-07] MEDS: amLODIPine BESYLATE 5 MG TABLET PO SCH (08:30)
[2019-12-07] MEDS: ASPIRIN CHEWABLE 81 MG TABLET. PO SCH (08:31)
[2019-12-07 15:44] VITALS: BP 141/84
[2019-12-07] MEDS: MELATONIN 3 MG TABLET PO SCH (20:24)
[2019-12-07] MEDS: LATANOPROST 0.005% OPHTH SOLUTION 2.5ML BOTTLE. OU SCH (20:24)
[2019-12-07] MEDS: ATORVASTATIN CALCIUM 10 MG TABLET. PO SCH (20:24)
[2019-12-07] MEDS: traZODone 150 MG TABLET. PO SCH (20:24)
[2019-12-07] MEDS: PRAZOSIN 1 MG CAPSULE. PO SCH (20:25)
[2019-12-07] MEDS: DOCUSATE SODIUM 100 MG CAPSULE PO SCH (20:25)
[2019-12-07] MEDS: DIVALPROEX ER 500 MG TAB.ER.24H PO SCH (20:26)
[2019-12-07] MEDS: risperiDONE 1 MG TABLET. PO SCH (20:26)
--- NOTE | 2019-12-07 22:14 | PDOC ---
Exam Note: Kannan Note: Please also refer to the separate dictated note~for this date of service dictated separately.~Patient seen individually. Discussed the patient with Nursing staff reviewed the chart.~Reviewed interim history and current functioning. Reviewed vital signs,~Labs/ Radiology~and current medications noted below. Continue current treatment with the changes noted in the dictated addendum note Assessment: Vital Signs/I&O: Vital Signs Date Time Temp Pulse Resp B/P (MAP) Pulse Ox O2 Delivery O2 Flow Rate FiO2 12/07/19 20:25 72 141/84 12/07/19 15:44 97.9 20 97 12/05/19 06:07 Room Air I & O 12/06/19 12/06/19 12/07/19 14:59 22:59 06:59 Intake Total 600 ml 480 ml 240 ml Balance 600 ml 480 ml 240 ml Current Medications: I have reviewed the current psychotropics carefully including drug interactions. Risk benefit ratio favors no change other than as noted in my dictated progress note. Diagnosis: Problems: (1) Schizoaffective disorder, bipolar type (2) Impulse control disorder, unspecified (3) Anxiety disorder, unspecified (4) Bipolar disorder, curr episode depressed, severe, w/psychotic features PIETER PRINCE MD Dec 07, 2019 22:14
--- NOTE | 2019-12-07 22:19 | PN ---
DATE: 12/05/2019 PSYCHIATRIC PROGRESS NOTE This late entry, 12/04, covers the elements not covered in my initial note. SUBJECTIVE: I met with the patient on the evening of 12/04. Per JULIETH Beckham, the patient has done better. She is upset obsessing about discharge plans. She gets upset before lab draws and this was done in the morning. Routine labs done due to COVID precautions. We will not repeat it before her discharge given the marked distress she has with this. REVIEW OF SYSTEMS: No CV, , pulmonary, eye systems symptoms on review. MENTAL STATUS EXAM: Reasonably oriented. Speech is coherent, can be little rapid, loud at times. Abstraction fair, computation impaired, language function intact. Mood and affect appears more stable. LABORATORY DATA: Reviewed. IMPRESSION: Unchanged from initial note. PLAN: No change from initial note. MAN Arlene PRINCE MD DR: DANDY/leeann JOB#: [id number] / [id number]
[2019-12-07] MEDS ORDERED: BISA10SU4 RC (23:24)
[2019-12-07] MEDS ORDERED: DIVA500T17 PO (23:25)
[2019-12-07] MEDS ORDERED: MAG-115 PO (23:27)
[2019-12-07] MEDS ORDERED: MAGN24003 PO (23:28)
[2019-12-07] MEDS ORDERED: MELA3TAB43 PO (23:29)
[2019-12-07] MEDS ORDERED: METH28OI2 TP (23:30)
[2019-12-07] MEDS ORDERED: OLAN5TAB5 PO (23:32)
[2019-12-07] MEDS ORDERED: PRAZ1CAP2 PO (23:33)
[2019-12-07] MEDS ORDERED: RISP1TAB3 PO (23:35)
[2019-12-07] MEDS ORDERED: TRAZ150T49 PO ×2 (23:36→23:37)
--- NOTE | 2019-12-08 02:23 | PN ---
DATE: 12/06/2019 PSYCHIATRIC PROGRESS NOTE This late entry 12/06/2019 covers elements not covered in my initial note. SUBJECTIVE: I met with the patient in the evening and staffed at a treatment team meeting with the entire team in the morning. Per JULIETH Beard, the patient slept 7-1/4 hours previous night. She gets agitated with lab draws, but otherwise doing better. REVIEW OF SYSTEMS: No CV, , pulmonary, eye system symptoms on review. MENTAL STATUS EXAMINATION: Reasonably oriented. Speech is coherent, less pressured. Abstraction fair, computation impaired, language function intact. Mood and affect was improved. LABORATORY DATA: Reviewed. IMPRESSION: Unchanged from initial note. PLAN: No change from initial note with discharge on Friday with outpatient followup at [facility] for her medication management. PIETER PRINCE MD DR: DANDY/leeann JOB#: [id number] / [id number]
[2019-12-08 06:00] VITALS: BP 103/63
[2019-12-08 06:32] LABS: BASO % 0 % (0-3); EOS % 1 % (0-3); HEMATOCRIT 37.7 % (36.0-47.0); HEMOGLOBIN 12.8 g/dL (12.0-15.5); LYMPH # 2.2 x10^3/uL (1.0-4.8); LYMPH % 41 % (24-48); MEAN CORPUSCULAR HEMOGLOBIN 28 pg (25-35); MEAN CORPUSCULAR HGB CONC 34 g/dL (31-37); MEAN CORPUSCULAR VOLUME 83 fL (79-100); MONO # 0.6 x10^3/uL (0.0-1.1); MONO % 11 % (0-9); NEUT # 2.5 x10^3uL (1.8-7.7); NEUT % 47 % (31-73); PLATELET COUNT 227 x10^3/uL (140-400); RED BLOOD COUNT 4.56 x10^6/uL (3.50-5.40); RED CELL DISTRIBUTION WIDTH 14.3 % (11.5-14.5); WHITE BLOOD COUNT 5.3 x10^3/uL (4.0-11.0)
[2019-12-08 06:58] LABS: ALBUMIN 3.1 g/dL (3.4-5.0); ALBUMIN/GLOBULIN RATIO 0.8 (1.0-1.7); CALCIUM 8.8 mg/dL (8.5-10.1); CREATININE 0.8 mg/dL (0.6-1.0); GFR 89.5; POTASSIUM 4.2 mmol/L (3.5-5.1); TOTAL BILIRUBIN 0.2 mg/dL (0.2-1.0); TOTAL PROTEIN 6.9 g/dL (6.4-8.2)
[2019-12-08] MEDS: MULTIVITAMIN with MINERAL TABLET. PO SCH (08:33)
[2019-12-08] MEDS: ASPIRIN CHEWABLE 81 MG TABLET. PO SCH (08:33)
[2019-12-08] MEDS: PANTOPRAZOLE 40 MG TABLET. PO SCH (08:33)
--- NOTE | 2019-12-08 22:18 | PDOC ---
Exam Note: Kannan Note: Please also refer to the separate dictated note~for this date of service dictated separately.~Patient seen individually. Discussed the patient with Nursing staff reviewed the chart.~Reviewed interim history and current functioning. Reviewed vital signs,~Labs/ Radiology~and current medications noted below. Continue current treatment with the changes noted in the dictated addendum note Assessment: Vital Signs/I&O: Vital Signs Date Time Temp Pulse Resp B/P (MAP) Pulse Ox O2 Delivery O2 Flow Rate FiO2 12/08/19 06:00 97.9 73 18 103/63 (76) 87 Room Air I & O 12/07/19 12/07/19 12/08/19 15:00 23:00 07:00 Intake Total 720 ml 600 ml Balance 720 ml 600 ml Labs: Laboratory Tests Test 12/08/19 06:14 White Blood Count 5.3 x10^3/uL (4.0-11.0) Red Blood Count 4.56 x10^6/uL (3.50-5.40) Hemoglobin 12.8 g/dL (12.0-15.5) Hematocrit 37.7 % (36.0-47.0) Mean Corpuscular Volume 83 fL (79-100) Mean Corpuscular Hemoglobin 28 pg (25-35) Mean Corpuscular Hemoglobin Concent 34 g/dL (31-37) Red Cell Distribution Width 14.3 % (11.5-14.5) Platelet Count 227 x10^3/uL (140-400) Neutrophils (%) (Auto) 47 % (31-73) Lymphocytes (%) (Auto) 41 % (24-48) Monocytes (%) (Auto) 11 % (0-9) H Eosinophils (%) (Auto) 1 % (0-3) Basophils (%) (Auto) 0 % (0-3) Neutrophils # (Auto) 2.5 x10^3uL (1.8-7.7) Lymphocytes # (Auto) 2.2 x10^3/uL (1.0-4.8) Monocytes # (Auto) 0.6 x10^3/uL (0.0-1.1) Eosinophils # (Auto) 0.0 x10^3/uL (0.0-0.7) Basophils # (Auto) 0.0 x10^3/uL (0.0-0.2) Sodium Level 141 mmol/L (136-145) Potassium Level 4.2 mmol/L (3.5-5.1) Chloride Level 106 mmol/L (98-107) Carbon Dioxide Level 27 mmol/L (21-32) Anion Gap 8 (6-14) Blood Urea Nitrogen 12 mg/dL (7-20) Creatinine 0.8 mg/dL (0.6-1.0) Estimated GFR (Cockcroft-Gault) 89.5 BUN/Creatinine Ratio 15 (6-20) Glucose Level 104 mg/dL (70-99) H Calcium Level 8.8 mg/dL (8.5-10.1) Total Bilirubin 0.2 mg/dL (0.2-1.0) Aspartate Amino Transferase (AST) 17 U/L (15-37) Alanine Aminotransferase (ALT) 23 U/L (14-59) Alkaline Phosphatase 88 U/L (46-116) Total Protein 6.9 g/dL (6.4-8.2) Albumin 3.1 g/dL (3.4-5.0) L Albumin/Globulin Ratio 0.8 (1.0-1.7) L Current Medications: I have reviewed the current psychotropics carefully including drug interactions. Risk benefit ratio favors no change other than as noted in my dictated progress note. Diagnosis: Problems: (1) Schizoaffective disorder, bipolar type (2) Impulse control disorder, unspecified (3) Anxiety disorder, unspecified (4) Bipolar disorder, curr episode depressed, severe, w/psychotic features PIETER PRINCE MD Dec 08, 2019 22:18
--- NOTE | 2019-12-09 09:07 | PDOC ---
Exam Note: Kannan Note: This note is a late entry for 12/07/2019 covers elements not covered in my initial note. Subjective: The patient was seen face to face in the evening of 12/07/2019. Per Virginia CLANCY, she slept 4-1/4 hours previous night. She still can have a little bit of mood lability, being hyperverbal, loud, but much improved. Review of Systems: No CV, , pulmonary, eye system symptoms on review. Mental Status Exam: Reasonably oriented. I met her in the day room at length. Speech coherent. Abstraction fair. Computation impaired. Language function intact. Attention span short. Mood and affect improved. Laboratory Data: Reviewed. Impression: Schizoaffective disorder, bipolar type, mixed with psychotic features. Impulse control disorder. Psychotic disorder unspecified. Anxiety disorder unspecified. Insomnia. Plan: Continue psychotropics from initial note. Assessment: Vital Signs/I&O: Vital Signs Date Time Temp Pulse Resp B/P (MAP) Pulse Ox O2 Delivery O2 Flow Rate FiO2 12/08/19 06:00 97.9 73 18 103/63 (76) 87 Room Air I & O 12/08/19 12/08/19 12/09/19 15:00 23:00 07:00 Intake Total 960 ml Balance 960 ml Current Medications: I have reviewed the current psychotropics carefully including drug interactions. Risk benefit ratio favors no change other than as noted in my dictated progress note. Diagnosis: Problems: (1) Schizoaffective disorder, bipolar type (2) Impulse control disorder, unspecified (3) Anxiety disorder, unspecified (4) Bipolar disorder, curr episode depressed, severe, w/psychotic features PIETER PRINCE MD Dec 09, 2019 09:07
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
== END 2019-12-08 13:21 | DRG 885 ==
LOC: ER 14:52 → GEROPSY 16:48
PROVIDERS: ADMIT Psychiatry & Neurology Psychiatry; ATTEND Psychiatry & Neurology Psychiatry
DX: F25.0 Schizoaffective disorder, bipolar type (principal); R45.851 Suicidal ideations; Z68.41 Body mass index [BMI] 40.0-44.9, adult; E11.9 Type 2 diabetes mellitus without complications; E66.01 Morbid (severe) obesity due to excess calories; E78.5 Hyperlipidemia, unspecified; F43.10 Post-traumatic stress disorder, unspecified; F48.2 Pseudobulbar affect; F63.9 Impulse disorder, unspecified; F81.9 Developmental disorder of scholastic skills, unspecified; G47.00 Insomnia, unspecified; I10 Essential (primary) hypertension; Z91.14 Patient's other noncompliance with medication regimen; E66.9 Obesity, unspecified; F41.8 Other specified anxiety disorders; K21.9 Gastro-esophageal reflux disease without esophagitis; Z79.899 Other long term (current) drug therapy
CPT/HCPCS: 36415; 70450; 80053; 80061; 80164; 80307; 80329; 81001; 82140; 82306; 82607; 83036; 83540; 83550; 83735; 84436; 84443; 84480; 85025; 86592; 93005; G0480; 99285-25